=== PATIENT | male | born 1990 | race Caucasian/White ===

== ENCOUNTER 2017-06-10 19:36 | Inpatient (IN) | payer MEDICAID ==
[2017-06-10] MEDS ORDERED: NS 1,000 ML IV ONE (19:40)
[2017-06-10] MEDS ORDERED: ONDANSETRON 4 MG/2 ML VIAL ONE (19:43)
[2017-06-10] MEDS ORDERED: ONDANSETRON 4 MG/2 ML VIAL IVP ONE (19:44)
[2017-06-10 19:47] LABS: % IMMATURE GRANULYOCYTES 0.5 % (0.0-1.1); ABSOLUTE IMMATURE GRANULOCYTES 0.07 10^3/uL (0.00-0.10); ADD DIFF? NO; ADD MORPH? NO; ADD SCAN? NO; ATYPICAL LYMPHOCYTE FLAG 30 (0-99); FRAGMENT RBC FLAG 0 (0-99); HEMATOCRIT 47.9 % (40.0-51.0); HEMOGLOBIN 16.9 g/dL (13.7-17.5); LEFT SHIFT FLG 10 (0-99); LIPEMIA HEMOLYSIS FLAG 90 (0-99); MEAN CELL HEMOGLOBIN 33.3 pg (27.9-34.1); MEAN CELL HEMOGLOBIN CONCENTR. 35.3 g/dL (32.4-36.7); MEAN CELL VOLUME 94.5 fL (81.5-99.8); MEAN PLATELET VOLUME 9.3 fL (8.7-11.7); PLATELET CLUMPS FLAG 0 (0-99); PLATELET COUNT 233 10^3/uL (150-400); RED BLOOD CELL COUNT 5.07 10^6/uL (4.40-6.38); RED CELL DISTRIBUTION WIDTH 12.3 % (11.5-15.2)
--- NOTE | 2017-06-10 19:48 | CPEKG ---
Heart Rate: 85 RR Interval: 706 P-R Interval: 168 QRSD Interval: 98 QT Interval: 396 QTC Interval: 471 P [place]: 61 QRS [place]: -4 T Wave [place]: 70 EKG Severity - BORDERLINE ECG - EKG Impression: SINUS RHYTHM EKG Impression: BORDERLINE PROLONGED QT INTERVAL Electronically Signed By: Nadira Tran 10-Jun-2017 20:58:24
[2017-06-10 19:54] LABS: BASE EXCESS -12.8 mEq/L (-2.5-2.5); BICARBONATE 15 mEq/L (22-26); MEASURED OXYGEN SATURATION 95 % (92-95); PCO2 40 mmHg (34-38); PO2 98 mmHg (65-75); TCO2 16 mEq/L (23-27)
[2017-06-10 19:57] LABS: END TIDAL CO2 12; O2 CONCENTRATIION 15 % (0-100); P/F RATIO 653 RATIO
[2017-06-10 20:02] LABS: ANION GAP 16 mEq/L (8-16); CALCIUM 9.7 mg/dL (8.5-10.4); CARBON DIOXIDE 15 mEq/l (22-31); CHLORIDE 110 mEq/L (97-110); CREATININE 1.1 mg/dL (0.7-1.3); GLOMERULAR FILTRATION RATE > 60; GLUCOSE 157 mg/dL (70-100); POTASSIUM 3.5 mEq/L (3.5-5.2); SODIUM 141 mEq/L (134-144)
--- NOTE | 2017-06-10 20:03 | EDPHY ---
H & P Time Seen by Provider: 06/10/17 19:50 HPI/ROS: Chief Complaint: Syncope, vomiting, shortness of breath HPI: 26-year-old male who is visiting here from [place]. He has a history of congenital hydrocephalus and has a SUBCONTRACT ADMINISTRATOR shunt in place. Patient periodically gets severe headaches from this. He states today he developed a severe headache this morning. Started having some nausea and vomiting. He was in the bathroom vomiting this evening when the host family with whom he is staying heard a crash. They went to the bathroom to find him lying on his left hand side. He was covered in emesis. 911 was called. On arrival he was complaining of difficulty breathing. They noted diffuse rhonchi on exam and some "pink frothy thing at the mouth". He does report that he had been [place]. States his headache now is down to a 3/10. Mild nausea. Continued to have shortness of breath. Patient had oxygen saturations initially in the 70s. Up to the high 80s on non-rebreather for EMS. Patient is otherwise without any other complaint. He is awake and alert. ROS: 10 point Review of Systems is negative except as noted in the HPI. PMH: Chronic headaches, hydrocephalus Social History: No smoking, rare alcohol, no recreational drug use Family History: non-contributory Physical Exam: Gen: Awake, Alert, marked respiratory distress, tachypneic, hypoxemic HEENT: Nose: no rhinorrhea Eyes: PERRLA, EOMI Mouth: Moist mucosa dried blood on his lips and in his soto Neck: Supple, no JVD Chest: nontender, diffuse rhonchi left significantly greater on the left than right, no inspiratory rales Heart: S1, S2 normal, no murmur Abd: Soft, non-tender, no guarding Back: no CVA tenderness, no midline tenderness Ext: no edema, non-tender Skin: no rash Neuro: CN II-XII intact, Sensation grossly intact, Strength 5/5 in bilateral upper and lower extremities Constitutional: Initial Vital Signs Temperature (C) 36.6 C 06/10/17 19:36 Heart Rate 86 06/10/17 19:36 Respiratory Rate 22 H 06/10/17 19:36 Blood Pressure 144/84 H 06/10/17 19:36 O2 Sat (%) 90 L 06/10/17 19:36 O2 Delivery Mode Bi-Pap O2 (L/minute) 15 Allergies/Adverse Reactions: Penicillins Allergy (Verified 06/10/17 20:16) Medical Decision Making - Diagnostics Imaging Results: Imaging Impressions Chest X-Ray 06/10/17 19:39 Impression: Asymmetric pulmonary edema versus atypical pneumonia/viral pneumonitis. Imaging: I viewed and interpreted images myself ED Course/Re-evaluation: 26-year-old arrived with severe respiratory distress, initially presented as a possible headache but the patient has not had significant altitude exposure. His brought him for significantly worse on the left than right. Chest x-ray shows a worsening left-sided infiltrate. Given his history of recent vomiting passing out I suspect he had a syncopal episode from vasovagal vomiting and subsequently aspirated. Patient still having difficulty breathing on a non- rebreather and given his bronchi has been started on BiPAP. ECG noted. No acute findings. The blood gas noted. Consistent with a respiratory acidosis with hypoxemia again consistent with aspiration. Patient is on BiPAP, 15/5 with significant improvement. He is resting comfortably. He is satting 100%. I have discussed with Dr. Durán, hospitalist. Will admit to the ICU. She agrees with the plan to start Invanz as the patient is pen allergic and has had a significant aspiration. - Data Points Laboratory Results: Laboratory Results 06/10/17 19:20 06/10/17 19:20 06/10/17 06/10/17 06/10/17 19:47 19:33 19:20 WBC RBC Hgb POC Hgb 17.0 gm/dL gm/dL (13.7-17.5) Hct POC Hct 50 % % (40-51) MCV MCH MCHC RDW Plt Count MPV Neut % (Auto) Lymph % (Auto) [place] % (Auto) Eos % (Auto) Baso % (Auto) Nucleat RBC Rel Count Absolute Neuts (auto) Absolute Lymphs (auto) Absolute Monos (auto) Absolute Eos (auto) Absolute Basos (auto) Absolute Nucleated RBC Immature Gran % Immature Gran # Puncture Site RIGHT RADIAL Patient Temperature 37.0 DEGREES DEGREES pCO2 40 mmHg H mmHg (34-38) pO2 98 mmHg H mmHg (65-75) Total CO2 16 mEq/L L mEq/L (23-27) ABG pH 7.20 L (7.35-7.45) ABG PO2/FiO2 Ratio 653 RATIO RATIO ABG HCO3 15 mEq/L L mEq/L (22-26) ABG O2 Saturation 95 % % (92-95) ABG Base Excess -12.8 mEq/L L mEq/L (-2.5-2.5) O2 Concentration % 15 % % (0-100) End Tidal CO2 12 POC Sodium 143 mEq/L mEq/L (134-144) Sodium 141 mEq/L mEq/L (134-144) POC Potassium 3.0 mEq/L L mEq/L (3.3-5.0) Potassium 3.5 mEq/L mEq/L (3.5-5.2) POC Chloride 108 mEq/L mEq/L (97-110) Chloride 110 mEq/L mEq/L (97-110) Carbon Dioxide 15 mEq/l L mEq/l (22-31) Anion Gap 16 mEq/L mEq/L (8-16) POC BUN 18 mg/dL mg/dL (7-23) BUN 17 mg/dL mg/dL (7-23) Creatinine 1.1 mg/dL mg/dL (0.7-1.3) POC Creatinine 1.1 mg/dL mg/dL (0.7-1.3) Estimated GFR > 60 Glucose 157 mg/dL H mg/dL (70-100) POC Glucose 163 mg/dL H mg/dL (70-100) Calcium 9.7 mg/dL mg/dL (8.5-10.4) 06/10/17 19:20 WBC 15.49 10^3/uL H 10^3/uL (3.80-9.50) RBC 5.07 10^6/uL 10^6/uL (4.40-6.38) Hgb 16.9 g/dL g/dL (13.7-17.5) POC Hgb Hct 47.9 % % (40.0-51.0) POC Hct MCV 94.5 fL fL (81.5-99.8) MCH 33.3 pg pg (27.9-34.1) MCHC 35.3 g/dL g/dL (32.4-36.7) RDW 12.3 % % (11.5-15.2) Plt Count 233 10^3/uL 10^3/uL (150-400) MPV 9.3 fL fL (8.7-11.7) Neut % (Auto) 51.8 % % (39.3-74.2) Lymph % (Auto) 40.9 % % (15.0-45.0) [place] % (Auto) 5.8 % % (4.5-13.0) Eos % (Auto) 0.6 % % (0.6-7.6) Baso % (Auto) 0.4 % % (0.3-1.7) Nucleat RBC Rel Count 0.0 % % (0.0-0.2) Absolute Neuts (auto) 8.04 10^3/uL H 10^3/uL (1.70-6.50) Absolute Lymphs (auto) 6.33 10^3/uL H 10^3/uL (1.00-3.00) Absolute Monos (auto) 0.90 10^3/uL H 10^3/uL (0.30-0.80) Absolute Eos (auto) 0.09 10^3/uL 10^3/uL (0.03-0.40) Absolute Basos (auto) 0.06 10^3/uL 10^3/uL (0.02-0.10) Absolute Nucleated RBC 0.00 10^3/uL 10^3/uL (0-0.01) Immature Gran % 0.5 % % (0.0-1.1) Immature Gran # 0.07 10^3/uL 10^3/uL (0.00-0.10) Puncture Site Patient Temperature pCO2 pO2 Total CO2 ABG pH ABG PO2/FiO2 Ratio ABG HCO3 ABG O2 Saturation ABG Base Excess O2 Concentration % End Tidal CO2 POC Sodium Sodium POC Potassium Potassium POC Chloride Chloride Carbon Dioxide Anion Gap POC BUN BUN Creatinine POC Creatinine Estimated GFR Glucose POC Glucose Calcium Medications Given: Discontinued Medications Ondansetron HCl (Zofran) 4 mg IVP EDNOW ONE Stop: 06/10/17 19:45 Last Admin: 06/10/17 19:45 Dose: 4 mg Point of Care Test Results: 06/10/17 19:33 POC Sodium 143 POC Potassium 3.0 L POC Chloride 108 POC BUN 18 POC Creatinine 1.1 POC Glucose 163 H Departure - Departure Disposition: [facility] In[facility] Acute Clinical Impression: Aspiration pneumonitis, Vomiting, Headache Condition: Critical Referrals: Patient,NotPresent [Primary Care Provider] - As per Instructions
[2017-06-10] MEDS ORDERED: ERTAPENEM 1 GM in NS 100 ML IV ONE ×2 (20:18→20:30)
[2017-06-10] MEDS ORDERED: PROMETHAZINE HCL 25 MG TAB PO PRN (20:47)
[2017-06-10] MEDS ORDERED: IPRATROPIUM/ALBUTEROL 3 ML DEYVIAL IH PRN (20:51)
[2017-06-10] MEDS ORDERED: NS 1,000 ML IV SCH (21:00)
[2017-06-10] MEDS ORDERED: IBUPROFEN 800 MG TAB PO PRN (21:15)
[2017-06-10] MEDS ORDERED: SUMAtriptan 50 MG TAB PO PRN (21:15)
[2017-06-10] MEDS: NS W/ 20 KCl/L 1,000 ML IV SCH (22:15)
[2017-06-10] MEDS: GABAPENTIN 300 MG CAP PO SCH (22:29)
[2017-06-10] MEDS: TOPIRAMATE 100 MG TAB PO SCH (22:29)
[2017-06-10] MEDS: VENLAFAXINE XR 75 MG CAP PO SCH (22:30)
[2017-06-10] MEDS: ACETAMINOPHEN 325 MG TAB PO PRN (22:41)
[2017-06-11] MEDS: guaiFENesin/CODEINE PHOS 10 ML UDCUP PO PRN ×2 (01:15→12:19)
[2017-06-11] MEDS: oxyCODONE IR 5 MG TAB PO PRN ×3 (02:02→20:57)
[2017-06-11] MEDS: NS W/ 20 KCl/L 1,000 ML IV SCH ×3 (04:27→18:31)
[2017-06-11] MEDS: HYDROmorphONE/DILAUDID 1 MG/ML SYR IVP PRN ×6 (05:16→23:58)
[2017-06-11] MEDS: PROMETHAZINE HCL 25 MG/ML INJ IVP PRN ×3 (05:23→19:44)
[2017-06-11 05:25] LABS: % IMMATURE GRANULYOCYTES 0.5 % (0.0-1.1); ABSOLUTE IMMATURE GRANULOCYTES 0.11 10^3/uL (0.00-0.10); ADD DIFF? NO; ADD MORPH? NO; ADD SCAN? NO; ATYPICAL LYMPHOCYTE FLAG 0 (0-99); FRAGMENT RBC FLAG 0 (0-99); HEMATOCRIT 37.9 % (40.0-51.0); HEMOGLOBIN 13.7 g/dL (13.7-17.5); LEFT SHIFT FLG 20 (0-99); LIPEMIA HEMOLYSIS FLAG 90 (0-99); MEAN CELL HEMOGLOBIN 33.9 pg (27.9-34.1); MEAN CELL HEMOGLOBIN CONCENTR. 36.1 g/dL (32.4-36.7); MEAN CELL VOLUME 93.8 fL (81.5-99.8); MEAN PLATELET VOLUME 9.1 fL (8.7-11.7); PLATELET CLUMPS FLAG 0 (0-99); PLATELET COUNT 160 10^3/uL (150-400); RED BLOOD CELL COUNT 4.04 10^6/uL (4.40-6.38); RED CELL DISTRIBUTION WIDTH 12.3 % (11.5-15.2)
[2017-06-11] MEDS: CYCLOBENZAPRINE 10 MG TAB PO PRN ×2 (05:36→20:58)
[2017-06-11 06:03] LABS: ANION GAP 11 mEq/L (8-16); CALCIUM 8.6 mg/dL (8.5-10.4); CARBON DIOXIDE 14 mEq/l (22-31); CHLORIDE 118 mEq/L (97-110); CREATININE 0.8 mg/dL (0.7-1.3); GLOMERULAR FILTRATION RATE > 60; GLUCOSE 109 mg/dL (70-100); POTASSIUM 4.1 mEq/L (3.5-5.2); SODIUM 143 mEq/L (134-144)
--- NOTE | 2017-06-11 07:21 | GHP ---
[f rep st] HISTORY AND PHYSICAL DATE OF ADMISSION: 06/10/2017 CHIEF COMPLAINT: Respiratory failure. HISTORY: The patient is a 26-year-old male visiting from [facility]. 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 He developed a severe headache this morning consistent with his usual migraines. He has had headaches similar to this in the past. This caused some nausea and vomiting. He is staying with a host family while he undergoes a training program. The host family heard a loud crash and found him lying on his left si de covered in emesis. The patient has no memory and had a full syncopal event suspected, just woke up on the floor. At that point he had new onset shortness of breath. 911 was called. Upon arrival , EMS found him to be only 70% on room air. He was brought to the emergency room and was 80% on a n onrebreather. He was subsequently stepped up to a BiPAP machine and is now saturating 100% and more comfortable. PAST MEDICAL HISTORY: 1. 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 2. Migraine and tension headaches. MEDICATIONS: Please see computer record for full detailed list. ALLERGIES: Penicillin. SOCIAL HISTORY: No smoking. No drug use. Occasional alcohol. Staying in [place] with a host neda sousa. He normally lives in [place] with his parents. REVIEW OF SYSTEMS: Complete review of systems obtained. Review of systems negative for any constit utional, HEENT, GI, pulmonary, cardiovascular, , hematology, skin, muscular, endocrine, psychiatri c, except for positives and negatives as in the HPI. FAMILY HISTORY: Reviewed and noncontributory, without any complaint. PHYSICAL EXAMINATION: GENERAL: Well-developed, well-nourished male in no distress. VITAL SIGNS: Temperature is 36.6, pulse of 90, blood pressure 130/90, saturating 100% on BiPAP. HEENT: Eye exam ination normal conjunctivae, pupils react to light. ENT normal ears and nose. Hearing intact. Nor mal teeth. Oropharynx moist. NECK: Trachea midline. No thyromegaly. CHEST: Normal respiratory effort. LUNGS: Rales on the left. Minimal wheeze or rhonchi at this point. CARDIOVASCULAR: Regu lar rhythm. No murmur. No extremity edema. ABDOMEN: Soft, nontender. No hepatosplenomegaly. SK IN: Warm, dry, intact. No rash. MUSCULOSKELETAL: No cyanosis or clubbing. Strength 5/5 upper an d lower extremities. NEUROLOGIC: Cranial nerves intact. Normal sensation to light touch. PSYCHIA TRIC: Alert and oriented x3. Normal mood and affect. Normal judgment and insight. Normal memory. Difficult to take history through the BiPAP mask, but his answers are all appropriate. DIAGNOSTICS: Labs: White count 15.49, hematocrit 47.9, platelets 233. Sodium 141, potassium 3.5, chloride 110, bicarb 15, anion gap 16, BUN 17, creatinine 1.11, glucose 157. ABG shows a pH of 7.2, pCO2 of 40, PO2 of 98, bicarb of 16. EKG reviewed by me and my personal interpretation is normal sinus rhythm. No ST-T wave changes. Chest x-ray shows extensive left-sided infiltrate throughout the entire lung. ASSESSMENT/PLAN: 1. Acute respiratory failure, secondary to aspiration pneumonia. He is now stabilized nicely on Bi PAP. He will go to the ICU. Will continue IV Invanz. 2. Headache. He states this is consistent with previous migraines. This will be treated supportiv araceli. 3. Nausea, vomiting, and syncope. I suspect this is related to acute hypoxemia versus a vasovagal event. 4. Ventriculoperitoneal shunt, due to congenital hydrocephalus. He did not get a head CT in the ER , which probably should get done, so will order it now. CODE STATUS: Full. ADMISSION STATUS: Will admit to inpatient, as he is critically ill. Anticipate greater than 2 midn ights for stabilization. DEEP VEIN THROMBOSIS PROPHYLAXIS: He is moderate risk. Will place him on subcu Lovenox. /[id number]/MODL
[2017-06-11] MEDS: GABAPENTIN 300 MG CAP PO SCH ×2 (08:58→21:44)
[2017-06-11] MEDS: TOPIRAMATE 100 MG TAB PO SCH ×2 (08:58→21:44)
[2017-06-11] MEDS: ACETAMINOPHEN 325 MG TAB PO PRN ×2 (08:59→16:46)
[2017-06-11] MEDS: ENOXAPARIN 40 MG/0.4 ML SYR SC SCH (08:59)
[2017-06-11] MEDS: ERTAPENEM 1 GM in NS 100 ML IV SCH (08:59)
[2017-06-11] MEDS ORDERED: CETIRIZINE 10 MG TAB PO PRN (09:00)
[2017-06-11] MEDS: KETOROLAC 30 MG/1 ML SDV IVP PRN ×2 (11:25→19:43)
--- NOTE | 2017-06-11 11:46 | CPEKG ---
Heart Rate: 59 RR Interval: 1017 P-R Interval: 188 QRSD Interval: 94 QT Interval: 528 QTC Interval: 524 P [place]: -1 QRS [place]: 31 T Wave [place]: 134 EKG Severity - ABNORMAL ECG - EKG Impression: SINUS ARRHYTHMIA, RATE 46-66 EKG Impression: NONSPECIFIC T ABNORMALITIES, ANT-LAT LEADS CONSIDER ISCHEMIA EKG Impression: PROLONGED QT INTERVAL EKG Impression: EARLY TRANSITION Electronically Signed By: Deng Henriquez 13-Jun-2017 17:25:06
--- NOTE | 2017-06-11 15:13 | HOSPPROG ---
Hospitalist Progress Note Assessment/Plan: #Syncope: suspect vasovagal with emesis. Sinus pauses on telemetry. Repeat EKG, TTE, trop #Sinus pause: suspect vasovagal with emesis. Shunt stable on CT. Hard to correlate if symptomatic with persistent migraine. Discussed with Dr. Sanders and will start with TTE #Aspiration PNA vs pneumonitis: acute emesis. Less likely infection, afebrile. IV Ertapenem #Leukocytosis: stress-reaction with aspiration #Acute hypoxic resp failure: due to above. IV abx #Acute on chronic migraines: TROLLEY CLEANER shunt stable on CT, no mass/bleed. Trialing Benadryl, steroids. Imitrex not helpful. Appreciate Neuro consult #Congenital hydrocephalus: TROLLEY CLEANER well-positioned #Diet: regular #DVT ppx: Lovenox #Disp: warrant ICU admission with acute sepsis Subjective: migraine persistent this morning Objective: Vital Signs Temp Pulse Resp BP Pulse Ox 36.1 C 75 16 145/71 H 100 06/11/17 05:44 06/11/17 13:39 06/11/17 13:39 06/11/17 13:39 06/11/17 13:39 Laboratory Results 06/11/17 05:05 06/11/17 05:05 06/10/17 06/11/17 06/12/17 05:59 05:59 05:59 Intake Total 2520 Balance 2520 - Physical Exam Constitutional: uncomfortable (sitting in bed with head in hands, eyes shut) Ears, Nose, Mouth, Throat: moist mucous membranes Cardiovascular: bradycardia Respiratory: no respiratory distress, no rales or rhonchi Gastrointestinal: normoactive bowel sounds, soft, non-tender abdomen Genitourinary: no bladder fullness Skin: warm Musculoskeletal: full muscle strength Neurologic: AAOx3, CN II-XII Intact Psychiatric: interacting appropriately ICD10 Worksheet Patient Problems: Problems Problem Status Onset Aspiration pneumonitis Acute Headache Acute Vomiting Acute
[2017-06-11] MEDS: DEXAMETHASONE 4 MG/ML VIAL IVP SCH ×2 (17:28→23:30)
--- NOTE | 2017-06-11 18:03 | GCON ---
[f rep st] CONSULTATION TEST ENGINEERING MANAGER CONSULTATION REASON FOR ADMISSION: Aspiration pneumonia. HISTORY OF PRESENT ILLNESS: This patient is a pleasant 26-year-old white male with a past medical h istory of congenital hydrocephalus requiring a ENTERPRISE MANAGER sent shunt as a child. He has had constant recurr ent migraines and tension headaches. He is followed by a neurologist in [place]. Apparently he was found down in his home after vomiting. He was lying on his left side at that time. He is visiting the area from [place]. The patient is currently somewhat somnolent, but arousable. He complain s of a headache. He was quite hypoxic in the emergency room. This is improved and he is currently on room air. Apparently, his migraines have increased over the last several months. He last saw [facility] neurologist 3 weeks ago. PAST MEDICAL HISTORY: Significant for congenital hydrocephalus, migraine tension headaches. PAST SURGERIES: ENTERPRISE MANAGER shunt. ALLERGIES: Penicillin. SOCIAL HISTORY: No history of tobacco use. No history of drug use. Infrequent alcohol use. He re sides in [place] with his parents. He has excellent family support. PHYSICAL EXAM: VITAL SIGNS: Blood pressure is 124/86, pulse 67, respirations 19, temperature is 36 .1, oxygen saturation 99% on 2 L. GENERAL: He is a well-developed, well-nourished, 26-year-old whi te male who is in mild distress. HEENT: Eyes are RADHA, EOMI. Throat shows no erythema or tonsilla r hypertrophy. NECK: Supple. No cervical adenopathy. HEART: Regular rate and rhythm, without mu rmurs, rubs, or gallops. LUNGS: Diminished breath sounds. Increased crackles in the left base pos teriorly. There are no E to A changes. ABDOMEN: Soft, nontender. Bowel sounds are present in all 4 quadrants. EXTREMITIES: No clubbing, cyanosis or edema. LABORATORIES: White count 21,000, hemoglobin 13, hematocrit 37, platelet count is 160. Sodium 143, potassium 4.1, chloride 118, CO2 is 14, BUN 15, creatinine 0.8, glucose is 109. Arterial blood gas showed a pH of 7.20, pCO2 of 40, PO2 of 98, bicarb 16, oxygen saturation is 95%. IMAGING: CT scan of the head shows well-positioned left frontal ventriculostomy with a decompressed ventricular system, otherwise normal. Chest x-ray shows left sided infiltrate. IMPRESSION: 1. Aspiration pneumonia. 2. Migraines. These are worsening in nature and severity. 3. History of congenital hydrocephalus with a ENTERPRISE MANAGER shunt. RECOMMENDATIONS: 1. Agree with current IV antibiotics consisting of ertapenem. 2. Imitrex for his migraines. 3. Family requests Neurology consult for worsening migraines. 4. DVT and PE prophylaxis. 5. Stress ulcer prophylaxis. Thank you very much. /[id number]/MODL
--- NOTE | 2017-06-11 18:03 | ECHO ---
[id number] + + [address] : : [place] [address] : : [phone] + Adult Echocardiographic Report + ----+ :Name: JOSE FRANCISCO LAWLER Date: 06/11/2017 12:05 PM : : Hospital Admission Number: [id number] Location: 254: :: 1990 Gender: Male Height: 70 in : :Age: 26 yrs Race: WH Weight: 165 lb : :Reason For Study: Eval LV Fx : : BSA: 1.9 meters2 : :History: Syncope, Bradycardia, Pneumonia, Migraine : + ----+ MMode/2D Measurements \T\ Calculations IVSd: 1.0 cm LVIDd: 5.1 cm FS: 34.4 % Ao root diam: 3.5 cm LVPWd: 1.1 cm LVIDs: 3.3 cm EDV(Teich): 122.0 ml ACS: 2.5 cm ESV(Teich): 45.0 ml EF(Teich): 63.1 % Normal Measurement Values: + + :LVIDd (3.5-5.7cm) IVSd (0.6-1.1cm) LVPWd (0.6-1.1cm) Aortic Root (2.0-3.7cm)Left Atrium (1.5-4.0cm): :LV Vol(d) (76-115ml) LV Vol(s) (29-48ml) Ejec Fraction (50-65%)PV Enrike (0.6- 1.2m/s) TV Enrike (0.4-1.0m/s) : :MV E Enrike (0.8-1.0m/s)MV A Enrike (0.3-1.0m/s)LVOT Enrike (0.7-1.2m/s) Asc Ao Enrike ( 0.9-1.8m/s) : + + Doppler Measurements \T\ Calculations MV E max enrike: Ao V2 max: LV V1 max: PA V2 max: 70.6 cm/sec 86.9 cm/sec 52.8 cm/sec 108.6 cm/sec MV A max enrike: Ao max PG: LV V1 max PG: PA max P.7 mmHg 37.5 cm/sec 3.0 mmHg 1.1 mmHg MV E/A: 1.9 Left Ventricle The left ventricle is normal in size. There is normal left ventricular wall thickness. The left ventricular ejection fraction is normal. Ejection Fraction = 65%. Right Ventricle The right ventricle is normal in size and function. Atria The left atrial size is normal. Right atrial size is normal. Mitral Valve The mitral valve is normal. There is no mitral valve stenosis. There is no mitral regurgitation noted. Tricuspid Valve Normal tricuspid valve. No tricuspid regurgitation. Aortic Valve The aortic valve is bicuspid. There is no aortic stenosis. There is a mild, eccentric aortic insufficiency. Pulmonic Valve The pulmonic valve is normal in structure and function. Great Vessels The aortic root is normal size. No Doppler or imaging evidence of an aortic coarctation. Pericardium/Pleural There is no pericardial effusion. Conclusion A complete two-dimensional transthoracic echocardiogram was performed (2D, M-mode, Doppler and color flow Doppler). 1. The left ventricle is normal in size and function. The Ejection Fraction = 65%. 2. The mitral valve is normal in structure and function. 3. The aortic valve is bicuspid. There is a mild, eccentric aortic insufficiency. There is no aortic stenosis. 4. The aortic root is normal size. 5. The pulmonary artery pressure could not be adequately estimated. 6. No old studies for comparison. Final Reading Physician: Deng Henriquez MD electronically signed on 06/11/2017 06:01 PM Ordering Physician: Devora Cotto Performed By: Bipin Hoffmann, LINUSCS
[2017-06-11 18:30] LABS: TROPONIN I 0.085 ng/mL (0-0.034)
[2017-06-11] MEDS: VANCOMYCIN 1.25 GM in D5W 250 ML IV SCH (18:30)
--- NOTE | 2017-06-11 20:03 | GCON ---
[f rep st] CONSULTATION NEUROLOGIC CONSULTATION REFERRING PHYSICIAN: Toney Pendleton, DO HISTORY: The patient is a 26-year-old gentleman whom I am asked to see in neurologic consultation r egarding migraine headaches. He has a history of congenital hydrocephalus and a shunt at age 5, and has not had a shunt revision for many years. He has a long history of migraine as well, greater th an 10 years, and typically they would occur once or twice a week. Sometimes less and sometimes more . But over the last several months, the frequency has been increasing to as many as 4 full-blown mi graine headaches per week. He is working with his neurologist and they have him on Topamax and cesar pentin, but he is still having a hard time preventing the migraines. They are disabling when they o ccur and can keep him out of commission for hours. They can be associated with trouble with verbal expression and confusion as well. He is currently in the midst of a migraine and unable to provide much history directly and is lying in a dark room, but I can get information from his mother who is a very reliable historian and knows his case fairly well. In any case, she said they are in the pro cess of trying to get him Botox, but they have not been able to connect with the provider who does t hat and are working to arrange that as soon as possible. They wanted to see someone today to discus s other options or help facilitate the process of getting him on Botox. He came to the hospital on this occasion because of severe headache with vomiting, and then samanta d suspected aspiration pneumonia. He has had imaging of the brain showing no evidence of hydrocepha gretel. The ventricles are decompressed. He is receiving treatment for the pneumonia and that is stab ilizing, but he is very uncomfortable with headache today. PAST MEDICAL HISTORY: As outlined above with the migraine and the hydrocephalus, but otherwise unre markable. ALLERGIES: Penicillin. SOCIAL HISTORY: He is staying with a host family currently in the area associated with some of his work. No smoking or drug use. Occasional alcohol. His home is in [facility] normally living with his parents, but he is going to be traveling out of the [place] soon. FAMILY HISTORY: Noncontributory. REVIEW OF SYSTEMS: Notable for light sensitivity, sound sensitivity, nausea and intense headache, a nd some trouble with his expression when he is in the middle of a migraine, like today. PHYSICAL EXAMINATION: CURRENT VITAL SIGNS: Blood pressure is 97/57, pulse of 60, respirations 14, temperature is 36.1. He has not had any elevated temperatures into the febrile range. GENERAL: I did not try to examine him because he is uncomfortable and very light sensitive, and did not think it was very likely to show any acute physical findings. IMAGING: As noted, he did have a head CT, which did not show any evidence of hydrocephalus. IMPRESSION: The patient has a long-standing history of congenital hydrocephalus, with good decompre ssion with shunt in place. It is not likely that shunt malfunction is the issue here. There is no way to know definitively, but I think that should be low on the list of the differential considerati ons. More likely is he is simply having a flare-up of migraine headaches and the true root cause of migraine really isn't known in this patient or anybody else. He certainly does not have a clear-cu t explanation. It is logical that, in the setting of pneumonia, he might have worsening of headache and the cough could have exacerbated it as well, but none of this is a new phenomenon to him. Clas sically he treats with Imitrex, but cannot abort the headaches but rather simply decrease their inte nsity when they do occur. The frequency has reached the point of justifying more intervention, such as Botox, and they are in the process of doing that now. It has simply been hard for them to facil itate this quickly in the outpatient setting. PLAN: I told his mother to contact the physician's office who is working with them and find out for sure where they stand on getting the Botox approved, because this needs to be done before he can ev en receive the treatment. I also offered to help through our office if they wanted to have the [facility] records transferred to us and we can see about having this information submitted to Medicaid so we can get approval as soon as possible for Botox treatments, which I am happy to do if he is in the [place] area. In any case, she will be in touch and let me know how that they would like to procee d. In the meantime, I am interested in helping alleviate this current headache and agree that ankita ng off in the short-term with Imitrex because of some of the heart issues of unknown cause showing u p is reasonable. However, he can still receive treatment with IV Benadryl, ketorolac, Phenergan and a dose of steroid may be helpful as well. I will continue to be available for any questions as the y come up and check on his progress. /[id number]/MODL
[2017-06-11] MEDS: VENLAFAXINE XR 75 MG CAP PO SCH (21:44)
[2017-06-11] MEDS: ONDANSETRON 4 MG/2 ML VIAL IVP PRN (23:48)
[2017-06-12] MEDS: KETOROLAC 30 MG/1 ML SDV IVP PRN ×4 (01:46→19:26)
[2017-06-12] MEDS: NS W/ 20 KCl/L 1,000 ML IV SCH ×2 (01:47→10:40)
[2017-06-12] MEDS: HYDROmorphONE/DILAUDID 1 MG/ML SYR IVP PRN ×4 (04:18→14:01)
[2017-06-12 04:36] LABS: HEMATOCRIT 38.1 % (40.0-51.0); HEMOGLOBIN 13.3 g/dL (13.7-17.5); MEAN CELL HEMOGLOBIN 33.6 pg (27.9-34.1); MEAN CELL HEMOGLOBIN CONCENTR. 34.9 g/dL (32.4-36.7); MEAN CELL VOLUME 96.2 fL (81.5-99.8); RED BLOOD CELL COUNT 3.96 10^6/uL (4.40-6.38); RED CELL DISTRIBUTION WIDTH 12.3 % (11.5-15.2)
[2017-06-12 04:51] LABS: ANION GAP 17 mEq/L (8-16); CALCIUM 8.5 mg/dL (8.5-10.4); CARBON DIOXIDE 13 mEq/l (22-31); CHLORIDE 113 mEq/L (97-110); CREATININE 0.7 mg/dL (0.7-1.3); GLOMERULAR FILTRATION RATE > 60; GLUCOSE 118 mg/dL (70-100); POTASSIUM 4.7 mEq/L (3.5-5.2); SODIUM 143 mEq/L (134-144)
[2017-06-12] MEDS: DEXAMETHASONE 4 MG/ML VIAL IVP SCH ×3 (05:24→17:30)
[2017-06-12] MEDS: VANCOMYCIN 1.25 GM in D5W 250 ML IV SCH ×2 (05:24→17:30)
[2017-06-12] MEDS: CYCLOBENZAPRINE 10 MG TAB PO PRN ×2 (07:50→13:13)
[2017-06-12] MEDS: ONDANSETRON 4 MG/2 ML VIAL IVP PRN (07:53)
[2017-06-12] MEDS: TOPIRAMATE 100 MG TAB PO SCH ×2 (08:04→21:41)
[2017-06-12] MEDS: ERTAPENEM 1 GM in NS 100 ML IV SCH (08:04)
[2017-06-12] MEDS: ENOXAPARIN 40 MG/0.4 ML SYR SC SCH (08:04)
[2017-06-12] MEDS: GABAPENTIN 300 MG CAP PO SCH ×2 (08:04→21:42)
--- NOTE | 2017-06-12 09:48 | PDINTPN ---
Vice President Digital Strategist Progress Note Assessment/Plan: Assessment/plan: * Aspiration pneumonia-clinically improved -continue Invanz * Congenital hydrocephalus-status post JUNIOR HIGH SCHOOL TEACHER shunt * Migraines-no improvement so far. -per Neurology * Mqsubdclvk-kkqo-ghpjwiko staph. Likely contaminant. * Bradycardia-significant pauses. -with the exception of bicuspid aortic valve, echocardiogram was normal -will consult Cardiology Subjective: Still having significant headaches. Breathing easily. Minimal cough Objective: Vital Signs Temp Pulse Resp BP Pulse Ox 36.4 C 77 20 118/79 95 06/12/17 04:00 06/12/17 07:54 06/12/17 07:54 06/12/17 07:54 06/12/17 07:54 Microbiology 06/10/17 20:22 Blood Panel (PCR) - Final Blood Staph Coagulase Negative Laboratory Results 06/12/17 04:30 06/12/17 04:30 06/11/17 06/12/17 06/13/17 05:59 05:59 05:59 Intake Total 2520 3791 Output Total 3600 350 Balance 2520 191 -350 Laboratory Results 06/12/17 04:30 06/12/17 04:30 06/10/17 20:22 Blood Culture - Preliminary Blood Blood Panel (PCR) - Final Gram Positive Cocci Staph Coagulase Negative Physical Exam - Physical Exam General Appearance: alert, mild distress EENT: PERRL/EOMI, normal ENT inspection, pharynx normal, TMs normal Neck: non-tender, full range of motion, supple, normal inspection Respiratory: crackles (Few left), No respiratory distress, No wheezing Cardiac/Chest: normal peripheral pulses, regular rate, rhythm Abdomen: normal bowel sounds, non-tender, soft Male Genitalia: deferred Rectal: deferred Skin: normal color, warm/dry Extremities: normal range of motion, non-tender, normal inspection, normal capillary refill ICD10 Worksheet Patient Problems: Problems Problem Status Onset Aspiration pneumonitis Acute Headache Acute Migraine Acute Vomiting Acute
[2017-06-12] MEDS: oxyCODONE IR 5 MG TAB PO PRN ×2 (11:00→17:30)
[2017-06-12] MEDS ORDERED: ATROPINE SULFATE 1 MG/10 ML SYR ONE (11:01)
--- NOTE | 2017-06-12 11:23 | HOSPPROG ---
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 Shunt stable on CT. Hard to correlate if symptomatic with persistent migraine. as above echo pretty normal I do have concern that he had bradycardic syncope and that bradycardia is mediated by elevated ICP CT w decompressed ventricles neurosurgery Aspiration PNA vs pneumonitis: acute emesis. Less likely infection, afebrile. IV Ertapenem Leukocytosis: stress-reaction with aspiration Acute hypoxic resp failure: due to above. IV abx Acute on chronic migraines: SKILLED TRADES TEACHER shunt stable on CT, no mass/bleed. Trialing Benadryl, steroids. Imitrex not helpful. Appreciate Neuro consult Congenital hydrocephalus: SKILLED TRADES TEACHER well-positioned Diet: regular DVT ppx: Lovenox Disp: warrant ICU admission with acute sepsis Subjective: tele: bradycardic w pauses (interp by me). case d/w dr anderson Objective: Vital Signs Temp Pulse Resp BP Pulse Ox 36.4 C 43 L 20 133/87 H 91 L 06/12/17 04:00 06/12/17 10:00 06/12/17 10:00 06/12/17 10:00 06/12/17 10:00 Microbiology 06/10/17 20:22 Blood Panel (PCR) - Final Blood Staph Coagulase Negative Laboratory Results 06/12/17 04:30 06/12/17 04:30 06/11/17 06/12/17 06/13/17 05:59 05:59 05:59 Intake Total 2520 3791 Output Total 3600 350 Balance 2520 191 -350 - Physical Exam Constitutional: no apparent distress, appears nourished Eyes: PERRL, anicteric sclera Ears, Nose, Mouth, Throat: moist mucous membranes, hearing normal Cardiovascular: bradycardia, No regular rate and rhythym, No systolic murmur Respiratory: no respiratory distress, no rales or rhonchi Gastrointestinal: normoactive bowel sounds, soft, non-tender abdomen Genitourinary: No brown in urethra Skin: warm, normal color Musculoskeletal: full muscle strength, no muscle tenderness Neurologic: AAOx3 ICD10 Worksheet Patient Problems: Problems Problem Status Onset Aspiration pneumonitis Acute Headache Acute Migraine Acute Vomiting Acute
[2017-06-12] MEDS: ACETAMINOPHEN 325 MG TAB PO PRN (13:12)
--- NOTE | 2017-06-12 14:31 | GCON ---
[f rep st] CONSULTATION NEUROSURGICAL CONSULTATION DATE OF CONSULTATION: 06/12/2017 CHIEF COMPLAINT: Headache. HISTORY OF PRESENT ILLNESS: The patient is a 26-year-old male who has a history of congenital shunt dependent hydrocephalus. His last shunt was revised around 1999 and was converted from a ventriculoatrial shunt to a ventriculoperitoneal shunt. Over the last several months, he has had persistent headaches. He has a longstanding history of migraines, for which he has seen a neurologist and he has been treated with Imitrex and other headache medications. He was visiting his family and had a syncopal episode with emesis and possible aspiration. He was admitted to [facility] for further evaluation. He currently complains of ongoing frontal and bitemporal headache. This is associated with photophobia and neck stiffness. He has had some nausea and vomiting as well. While in the hospital, he has had episodes of bradycardia. He is not having any new visual deficits. PAST MEDICAL HISTORY: 1. Shunt dependent hydrocephalus. 2. Migraine headaches. 3. Tension headaches. MEDICATIONS PRIOR TO ADMISSION: Flexeril, Neurontin, Motrin, Claritin, Phenergan, Imitrex, Topamax, and venlafaxine. ALLERGIES: Are penicillin and sulfa. FAMILY HISTORY: The patient has no family history of hydrocephalus or headaches. SOCIAL HISTORY: The patient is single and does not have any children. He does drink alcohol socially. He denies smoking or drug use. REVIEW OF SYSTEMS: The patient has had recent fevers, photophobia and neck stiffness. PHYSICAL EXAMINATION: GENERAL: The patient is awake, alert, and oriented x4. EYES: Pupils equal, round, reactive to light. Extraocular motions are intact. NEUROLOGIC: There is no evidence of facial droop. Tongue and uvula are midline. Spinal accessory muscles are intact. His motor strength is 5/5 in his arms and legs. Sensation is grossly intact to light touch in his arms and legs. Deep tendon reflexes are 1+/4 in the bilateral biceps, triceps, brachioradialis, patellar, and Achilles. He has a negative Lauren's with no clonus. IMAGING: A head CT without contrast from [facility] on 2016 shows a left-sided ventricular catheter in the left lateral ventricle. The left lateral ventricle is collapsed. The right lateral ventricle is slightly enlarged. There is no enlargement of the third or fourth ventricle. There is a small cerebellar arachnoid cyst. There is no evidence of an acute hemorrhage. LABORATORY DATA: Recent white blood cell count is 13.78 on 06/12/2017. This is down from 21,000 on 06/11/2017. It was 15.4 on 06/10/2017. The patient does have coagulase-negative Staph bacteremia in 1/2 blood cultures from 2016. IMPRESSION: This is a 26-year-old male with shunt dependent hydrocephalus, who has a long-standing history of headaches. He was recently admitted with a syncopal episode, bradycardia, fevers and chills. He is currently neurologically stable. PLAN: The above discussed in detail with the patient and his mother and father who are present. This patient was also seen and examined Dr. Ace Ennis. This case was also discussed with Dr. Pendleton and Dr. Howe. At this point in time, we would suggest that the patient have a lumbar puncture performed. We would like to evaluate his opening pressure and also send his cerebral spinal fluid for Gram stain, culture, protein, cell count, and glucose. The left-sided ventricular valve does depress, but does not refill quickly. At this point in time, we would recommend that he continue to stay on antibiotics for his aspiration pneumonia, even though this may skew the CSF culture. We can make further treatment recommendations after the lumbar puncture and evaluation of the cerebral spinal fluid. Dr Zhang discussed this case with Dr Alas and they would like Opthalmology to determine if he has evidence of papilledema. If he has papilledema or an elevated opening pressure then we can consider revision of his ADVERTISING PROJECT MANAGER shunt. Please call with any neurological changes. /[id number]/MODL MTDD
--- NOTE | 2017-06-12 14:41 | GCON ---
[f rep st] CONSULTATION CARDIOLOGY CONSULTATION DATE OF CONSULTATION: 06/12/2017 REASON FOR CONSULTATION: Sinus bradycardia and pauses up to approximately 3 seconds. HISTORY OF PRESENT ILLNESS: The patient is a pleasant 26-year-old gentleman with a known history of congenital hydrocephalus as a child, with a ENVIRONMENTAL COMPLIANCE OFFICER shunt placed initially at 6 months old, and has undergone multiple revisions, who also has a history of migraine headaches. He typically lives in [place] with his family and he was working down in [place] when he developed increasing severe intense headaches that felt more consistent than his typical migraine headaches. They are not responding to topical therapy. He was staying with friends when he became nauseated and vomited and loss consciousness. The family he was staying with found him unconscious on the floor and covered in vomit. He was complaining of being short of breath. He was found to be hypoxic with a room air saturation of 70% and was found to have aspiration pneumonia. He was admitted to the [facility] Intensive Care Unit for aspiration pneumonia and acute respiratory distress. Throughout the course of his hospitalization, he has had hniis-gq-telhdry headaches. CT scan of the head demonstrated no evidence of hydrocephalus. There was no evidence of subdural hematoma or trauma. Telemetry has demonstrated sinus bradycardia with rates dropping into the 30s and pauses of up to 3 seconds. He denies any complaints of dizziness, lightheadedness. He is on no A-V jose carlos blocking medications. He does not use marijuana. MEDICATIONS: Outpatient medications include venlafaxine, Topamax, and Neurontin. He uses p.r.n. Imitrex, Claritin, Motrin, Flexeril. ALLERGIES: He is allergic to penicillin and sulfa. PAST MEDICAL HISTORY: Notable for chronic headaches, congenital hydrocephalus status post ENVIRONMENTAL COMPLIANCE OFFICER shunt with multiple revisions, and migraine headaches. The patient denies any known history of bradycardia. PHYSICAL EXAMINATION: VITAL SIGNS: Blood pressure is 113/63, heart rate 47 in sinus bradycardia, respiratory rate of 23, oxygen saturation 95% on room air, temperature of 36.8. GENERAL: He is awake, alert, appropriate. He is in significant distress with chronic intense headache. His is eyes are closed and his hands are over his head secondary to pain. DATA: Most recent lab work demonstrates white blood cell count of 13.78, hemoglobin of 13.3, platelet count of 148. Sodium 143, potassium 4.7, chloride 113, bicarb 13, BUN 7, creatinine 0.7, glucose 118. Calcium 8.5, magnesium 1.8. TSH 0.643. Troponin 0.085, trending down to 0.066. A complete 2D echocardiogram demonstrates normal left ventricular systolic function with LVEF of 60-65%. He has evidence of a bicuspid aortic valve with mild aortic insufficiency. The remainder of his echocardiogram is essentially unremarkable. Most recent ECG demonstrates sinus arrhythmia with biphasic T-waves in leads V2 through V6 with a prolonged Q-T interval corrected via Bazett formula at 524 milliseconds. His initial ECG on presentation demonstrated sinus rhythm with borderline prolonged Q-T interval and no evidence of biphasic T-waves. IMPRESSION: 1. Sinus arrhythmia. 2. Sinus bradycardia. 3. Intermittent pauses up to 3 seconds. 4. Intractable headache. 5. History of congenital hydrocephalus with ventriculoperitoneal shunt. PLAN: 1. Agree with plan for LP and assessment of intracranial pressure. 2. Continue telemetry. 3. Recommend recheck serum magnesium today. 4. Continue on telemetry. 5. Daily ECGs. 6. No indication for pacemaker at this time. We will continue to follow along with his care. 45 min spent coordinating patient care /[id number]/MODL MTDChepe
[2017-06-12] MEDS ORDERED: TROPICAMIDE 1% 15 ML OPHT.BTL EACHEYE ONE (15:30)
--- NOTE | 2017-06-12 16:18 | NEUROPROG ---
Assessment: I had a conversation with the patient's mother and father who are in the room as well and also talked to Dr. Valles on the phone about the case and agree that pursuing evaluation with funduscopic exam and perhaps lumbar puncture is reasonable since we are not really making any progress on his case and increased intracranial pressure should be ruled out. The extremely refractory nature of his headaches is certainly not the typical story for migraine. Total unit time of 25 minutes. Subjective: The patient is continuing to have significant headache. There are times when it is less severe, but he still has moderate headache continuously and variable degrees of nausea and light and sound sensitivity and then periods of severe headache without major relief from the treatment. He feels that the addition of steroid and Benadryl may have made some difference, particularly with better rest using Benadryl but nothing has really broken the cycle of pain. Objective: Vital Signs Temp Pulse Resp BP Pulse Ox 36.8 C 49 L 17 130/93 H 96 06/12/17 12:00 06/12/17 14:00 06/12/17 14:00 06/12/17 14:00 06/12/17 14:00 Microbiology 06/10/17 20:22 Blood Panel (PCR) - Final Blood Staph Coagulase Negative Laboratory Results 06/12/17 04:30 06/12/17 04:30 06/11/17 06/12/17 06/13/17 05:59 05:59 05:59 Intake Total 2520 3791 Output Total 3600 350 Balance 2520 191 -350 The patient continues to lying in the dark holding his head and appears uncomfortable but he is communicating better with me now than yesterday. Allergies/Adverse Reactions: Penicillins Allergy (Verified 06/10/17 20:21) Hives sulfamethoxazole Allergy (Verified 06/10/17 20:21) Hives
[2017-06-12] MEDS ORDERED: ZOLPIDEM TARTRATE 5 MG TAB PO PRN (20:41)
--- NOTE | 2017-06-12 21:13 | GCON ---
[f rep st] CONSULTATION CHIEF COMPLAINT: Headaches and nausea. HISTORY OF PRESENT ILLNESS: This 26-year-old man was admitted to the service at [facility] with a complaint of severe headaches and nausea progressive over the past few weeks. He has a history of congenital intracranial pressure status post cerebral shunt. He denies any changes in vision. He does complain of positional nausea, worsened with rapid movement. MEDICATIONS: Please see his list. ALLERGIES: No known drug allergies. PHYSICAL EXAMINATION: EYES: Visual acuity 20/30 OU at distance. The patient was previously dilate d so no pupillary defect could be obtained. Eyes were soft to palpation. Anterior segment examinat ion within normal limits. Posterior examination: The media was clear. Optic nerve appeared swolle n OU. No heme noted. Macular periphery in vessels within normal limits. ASSESSMENT: In summary, this is a 26-year-old man with known history of congenital increased intrac ranial pressure status post shunt with symptoms of severe headaches, nausea, and bradycardia, noted to have optic nerve swelling both eyes. It is impossible to determine whether this optic nerve swel ling is acute or chronic based on limitations at the bedside examination, as well as unknown prior e xamination. However, in conjunction with his other symptoms, this very likely seems to be additiona l evidence of increased intracranial pressure. The results were called to the patient's attending. /[id number]/MODL
[2017-06-12] MEDS: VENLAFAXINE XR 75 MG CAP PO SCH (21:43)
[2017-06-13] MEDS: DEXAMETHASONE 4 MG/ML VIAL IVP SCH ×2 (00:06→05:58)
[2017-06-13] MEDS: KETOROLAC 30 MG/1 ML SDV IVP PRN (02:14)
[2017-06-13 05:22] LABS: % IMMATURE GRANULYOCYTES 0.4 % (0.0-1.1); ABSOLUTE IMMATURE GRANULOCYTES 0.05 10^3/uL (0.00-0.10); ADD DIFF? NO; ADD MORPH? NO; ADD SCAN? NO; ATYPICAL LYMPHOCYTE FLAG 0 (0-99); FRAGMENT RBC FLAG 0 (0-99); HEMATOCRIT 36.9 % (40.0-51.0); HEMOGLOBIN 13.2 g/dL (13.7-17.5); LEFT SHIFT FLG 0 (0-99); LIPEMIA HEMOLYSIS FLAG 90 (0-99); MEAN CELL HEMOGLOBIN 33.6 pg (27.9-34.1); MEAN CELL HEMOGLOBIN CONCENTR. 35.8 g/dL (32.4-36.7); MEAN CELL VOLUME 93.9 fL (81.5-99.8); MEAN PLATELET VOLUME 9.2 fL (8.7-11.7); PLATELET CLUMPS FLAG 10 (0-99); PLATELET COUNT 173 10^3/uL (150-400); RED BLOOD CELL COUNT 3.93 10^6/uL (4.40-6.38); RED CELL DISTRIBUTION WIDTH 12.4 % (11.5-15.2)
[2017-06-13 05:28] LABS: INR 1.16 (0.83-1.16); PROTIME(PATIENT) 14.8 SEC (12.0-15.0)
[2017-06-13] MEDS: NS W/ 20 KCl/L 1,000 ML IV SCH (05:55)
[2017-06-13] MEDS: VANCOMYCIN 1.25 GM in D5W 250 ML IV SCH (05:56)
--- NOTE | 2017-06-13 07:56 | NEUSURGPN ---
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 Dr Marti will place an external ICP monitor today at the bedside -Shunt series xray demonstrate intact shunt tubing throughout Patient was seen and plan discussed with Dr Marti Subjective: Patient denies headache Objective: AxO x3 EOMI PERRLA CN2-12 intact 5/5 BUE, BLE Sensation intact to light touch BLE Neuro Check Frequency: per routine Urinary Catheter in Place: No - Physician Discussed Patient with Dr.: Marti Patient Seen by Dr.: Marti Neurosurgery Physical Exam - Vitals, I&O, Labs I and O 06/12/17 06/13/17 06/14/17 05:59 05:59 05:59 Intake Total 3791 3098 Output Total 3600 2250 Balance 191 848 Intake: Oral (ml) 300 300 IV Intake (ml) 100 IV Infused (ml) 3391 2798 NS W/ 20 KCl/L 1,000 ml @ 3391 2798 150 mls/hr IV CONT CHALO Rx#:[id number] Output: Urine (ml) 3400 2250 Toilet 1600 Urinal 1800 2250 Emesis (ml) 200 Other: Number of Voids Toilet 2 Number of Emesis 1 Occurrences Microbiology 06/10/17 20:22 Blood Panel (PCR) - Final Blood Staph Coagulase Negative Vital Signs Temp Pulse Resp BP Pulse Ox 36.9 C 630 H 14 119/63 96 06/13/17 04:00 06/13/17 06:00 06/13/17 06:00 06/13/17 06:00 06/13/17 06:00 Laboratory Results 06/13/17 04:15 06/12/17 04:30 ICD10 Worksheet Patient Problems: Problems Problem Status Onset Aspiration pneumonitis Acute Headache Acute Migraine Acute Vomiting Acute
--- NOTE | 2017-06-13 08:53 | PDINTPN ---
Whipped Topping Supervisor Progress Note Assessment/Plan: Assessment/plan: * Aspiration pneumonia-likely pneumonitis for rather than pneumonia -will discontinue Invanz Invanz * Congenital hydrocephalus-status post RESOURCE DEVELOPMENT MANAGER shunt. Papilledema seen by Ophthalmology. -Likely to OR for revision * Migraines-headache markedly improved this morning. -per Neurology * Lfobtjoddl-mbot-nqqbxumm staph. Likely contaminant. * Bradycardia-significant pauses. -with the exception of bicuspid aortic valve, echocardiogram was normal -will consult Cardiology Overall feels better today Subjective: Resting comfortably. Awake and alert. Headache markedly improved. Was ambulating yesterday. Objective: Vital Signs Temp Pulse Resp BP Pulse Ox 36.9 C 630 H 14 119/63 96 06/13/17 04:00 06/13/17 06:00 06/13/17 06:00 06/13/17 06:00 06/13/17 06:00 Microbiology 06/10/17 20:22 Blood Panel (PCR) - Final Blood Staph Coagulase Negative Laboratory Results 06/13/17 04:15 06/12/17 04:30 06/12/17 06/13/17 06/14/17 05:59 05:59 05:59 Intake Total 3791 3098 Output Total 3600 2250 Balance 191 848 PT 14.8 SEC (12.0-15.0) 06/13/17 04:15 INR 1.16 (0.83-1.16) 06/13/17 04:15 Chest e-cxg-hjxjkrtx by myself. Currently clear no evidence of pneumonia Physical Exam - Physical Exam General Appearance: no apparent distress EENT: PERRL/EOMI, normal ENT inspection Neck: non-tender, full range of motion, supple, normal inspection Respiratory: chest non-tender, lungs clear, normal breath sounds Cardiac/Chest: normal peripheral pulses, regular rate, rhythm, bradycardia Peripheral Pulses: 2+: carotid (R), carotid (L), femoral (R), femoral (L), dorsalis-pedis (R), dorsalis-pedis (L) Abdomen: normal bowel sounds, non-tender, soft Male Genitalia: deferred Rectal: deferred Skin: normal color, warm/dry Extremities: normal range of motion, non-tender, normal inspection, normal capillary refill ICD10 Worksheet Patient Problems: Problems Problem Status Onset Aspiration pneumonitis Acute Headache Acute Migraine Acute Vomiting Acute
--- NOTE | 2017-06-13 09:00 | HOSPPROG ---
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 Shunt stable on CT. Hard to correlate if symptomatic with persistent migraine. as above echo pretty normal I do have concern that he had bradycardic syncope and that bradycardia is mediated by elevated ICP CT w decompressed ventricles Shunt: to be revised today CoNS bacteremia: contaminant Aspiration PNA vs pneumonitis: acute emesis. Less likely infection, afebrile. IV Ertapenem Leukocytosis: stress-reaction with aspiration Acute hypoxic resp failure: due to above. IV abx Acute on chronic migraines: PETROLEUM REFINERY LABORER shunt stable on CT, no mass/bleed. Trialing Benadryl, steroids. Imitrex not helpful. Appreciate Neuro consult Congenital hydrocephalus: PETROLEUM REFINERY LABORER well-positioned Diet: regular DVT ppx: Lovenox Disp: warrant ICU admission with acute sepsis Subjective: case d/w dr anderson. less bradycardia on tele (interp by me) Objective: Vital Signs Temp Pulse Resp BP Pulse Ox 36.9 C 630 H 14 119/63 96 06/13/17 04:00 06/13/17 06:00 06/13/17 06:00 06/13/17 06:00 06/13/17 06:00 Microbiology 06/10/17 20:22 Blood Panel (PCR) - Final Blood Staph Coagulase Negative Laboratory Results 06/13/17 04:15 06/12/17 04:30 06/12/17 06/13/17 06/14/17 05:59 05:59 05:59 Intake Total 3791 3098 Output Total 3600 2250 Balance 191 848 PT 14.8 SEC (12.0-15.0) 06/13/17 04:15 INR 1.16 (0.83-1.16) 06/13/17 04:15 - Physical Exam Constitutional: no apparent distress, appears nourished Eyes: PERRL, anicteric sclera Ears, Nose, Mouth, Throat: moist mucous membranes, hearing normal Cardiovascular: regular rate and rhythym, no murmur, rub, or gallop, No bradycardia Respiratory: no respiratory distress, no rales or rhonchi Gastrointestinal: normoactive bowel sounds, soft, non-tender abdomen Genitourinary: No brown in urethra Skin: warm, normal color Musculoskeletal: full muscle strength, no muscle tenderness Neurologic: AAOx3, sensation intact bilaterally Psychiatric: interacting appropriately ICD10 Worksheet Patient Problems: Problems Problem Status Onset Aspiration pneumonitis Acute Headache Acute Migraine Acute Vomiting Acute
--- NOTE | 2017-06-13 09:28 | PDCARPN ---
Cardiology Progress Note Assessment/Plan: Assessment: 1. Sinus austin with pauses up to 3 seconds 2. Hx of hydrocepahlus and DIAMOND POLISHER shunt 3. Bicuspid aortic valve Plan: -heart rate has improved today, no new pauses -think austin due to Increased intracranial pressure -plan for DIAMOND POLISHER shunt correction -will sign off 06/13/17 09:25 Subjective: Luther is feeling better this AM. FINK improved. Hr improved. no pauses Reviewed/Discussed With: family, hospitalist, multidisciplinary team Objective: Vital Signs (8 Hrs) Temp Pulse Resp BP Pulse Ox 06/13/17 06:00 630 H 14 119/63 96 06/13/17 04:00 36.9 C 61 14 118/66 96 06/13/17 02:00 75 14 116/55 L 96 Intake/Output (24 Hrs) 06/12/17 06/13/17 06/14/17 05:59 05:59 05:59 Intake Total 3791 3098 Output Total 3600 2250 Balance 191 848 Intake: Oral (ml) 300 300 IV Intake (ml) 100 IV Infused (ml) 3391 2798 NS W/ 20 KCl/L 1,000 ml @ 3391 2798 150 mls/hr IV CONT CHALO Rx#:[id number] Output: Urine (ml) 3400 2250 Toilet 1600 Urinal 1800 2250 Emesis (ml) 200 Other: Number of Voids Toilet 2 Number of Emesis 1 Occurrences Result Diagrams: 06/13/17 04:15 06/12/17 04:30 Cardiac Labs: Cardiac Lab Results (72 Hrs) 06/11/17 06/11/17 22:30 17:25 Troponin I 0.066 H 0.085 H - Physical Exam Constitutional: WDWN, no apparent distress Neurologic: AAOx3, CN II-XII grossly intact Psychiatric: cooperative, interactive ICD10 Worksheet Patient Problems: Problems Problem Status Onset Aspiration pneumonitis Acute Headache Acute Migraine Acute Vomiting Acute
[2017-06-13] MEDS: ERTAPENEM 1 GM in NS 100 ML IV SCH (10:59)
[2017-06-13] MEDS ORDERED: LIDOCAINE 1% 300 MG/30 ML SDV ONE (12:42)
[2017-06-13] MEDS ORDERED: LIDOCAINE 1% 300 MG/30 ML SDV IF ONE (13:00)
[2017-06-13] MEDS: GABAPENTIN 300 MG CAP PO SCH ×2 (13:26→21:13)
[2017-06-13] MEDS: TOPIRAMATE 100 MG TAB PO SCH ×2 (13:26→21:13)
[2017-06-13] MEDS ORDERED: VANCOMYCIN HCL/NORMAL SALINE 250 ML IV SCH (14:00)
--- NOTE | 2017-06-13 15:00 | NEUROPROG ---
Assessment: I had a conversation with the patient's mother and father who are in the room as well and also talked to Dr. Valles on the phone about the case and agree that pursuing evaluation with funduscopic exam and perhaps lumbar puncture is reasonable since we are not really making any progress on his case and increased intracranial pressure should be ruled out. The extremely refractory nature of his headaches is certainly not the typical story for migraine. Total unit time of 25 minutes. 06/13/17: Pt seen earlier and agree with the plan. Steroids stopped. FINK is 11/20 today. Shunt revision planned. Objective: Vital Signs Temp Pulse Resp BP Pulse Ox 36.1 C 55 L 14 122/68 H 98 06/13/17 12:00 06/13/17 14:00 06/13/17 14:00 06/13/17 14:00 06/13/17 14:00 Microbiology 06/10/17 20:22 Blood Panel (PCR) - Final Blood Staph Coagulase Negative Laboratory Results 06/13/17 04:15 06/12/17 04:30 06/12/17 06/13/17 06/14/17 05:59 05:59 05:59 Intake Total 3791 3098 Output Total 3600 2250 Balance 191 848 PT 14.8 SEC (12.0-15.0) 06/13/17 04:15 INR 1.16 (0.83-1.16) 06/13/17 04:15 Allergies/Adverse Reactions: Penicillins Allergy (Verified 06/10/17 20:21) Hives sulfamethoxazole Allergy (Verified 06/10/17 20:21) Hives
[2017-06-13] MEDS ORDERED: MIDAZOLAM 2 MG/2 ML VIAL IVP ONE (15:45)
[2017-06-13] MEDS ORDERED: fentaNYL 100 MCG/2 ML INJ IV ONE (15:45)
[2017-06-13] MEDS ORDERED: LIDO/EPI 1% **Not for Epidural 20 ML MDV NB ONE (15:46)
--- NOTE | 2017-06-13 19:32 | GPN ---
[f rep st] PROCEDURE NOTE DATE OF PROCEDURE: 06/13/2017 RECORD LABEL INTERN: None. PROCEDURE: Placement of right frontal intracranial pressure monitor. PREOPERATIVE DIAGNOSIS: Possible shunt malfunction. POSTOPERATIVE DIAGNOSIS: Possible shunt malfunction. BRIEF CLINICAL HISTORY: The patient is a 26-year-old man with long-term shunted hydrocephalus. He had presented to the hospital the other day with headaches and some bradycardia as well as bacteremi a from possible aspiration pneumonia. He was seen by our team and it was thought that he may need a shunt revision, although his CT showed a slit-like left ventricle which was completely collapsed ar ound the catheter, and no ventriculomegaly. His headache is gone today, so I spoke with him and his family about the possibility of placing an ICP monitor as we did not have very much objective evide nce in terms of what exactly was going on with the shunt, and they agreed to proceed. DESCRIPTION OF PROCEDURE: After informed consent was obtained from the patient, the patient was giv en conscious sedation with 50 mcg of fentanyl and 1 mg of Versed, which was administered by the nurs trena and was directly supervised by me. We continued to monitor the vital signs throughout the course of the procedure. A small bit of hair was clipped in the right frontal region, and the region was p repped and draped in normal sterile fashion. Then, 8 cc of 1% lidocaine with epinephrine was infilt rated into the skin for hemostasis. The head was draped appropriately. A stab incision was made near the hairline, and a twist drill was used to create a small bur hole un [place] the stab incision. The Codman monitor was then tunneled sterilely, and was appropriately zeroed , and the 0 reference was 496. The dura was then punctured and the monitor was placed into the brai n at a depth of approximately 1.5 cm. The waveform appeared to be good and the initial ICP was nega tive 2. At this point, the stab incision was closed using a 4-0 nylon vertical mattress stitch, and the catheter was secured to the skin using a 4-0 nylon stitch. As well, the wire was coiled 6 time s and secured to the dressings. At the end of the procedure, the patient had tolerated it well with no complications. Bleeding was minimal. The conscious sedation had no complications. /[id number]/MODL
[2017-06-13] MEDS: VENLAFAXINE XR 75 MG CAP PO SCH (21:13)
[2017-06-14 06:47] LABS: % IMMATURE GRANULYOCYTES 0.7 % (0.0-1.1); ABSOLUTE IMMATURE GRANULOCYTES 0.09 10^3/uL (0.00-0.10); ADD DIFF? NO; ADD MORPH? NO; ADD SCAN? NO; ATYPICAL LYMPHOCYTE FLAG 10 (0-99); FRAGMENT RBC FLAG 0 (0-99); HEMATOCRIT 38.6 % (40.0-51.0); HEMOGLOBIN 13.3 g/dL (13.7-17.5); LEFT SHIFT FLG 0 (0-99); LIPEMIA HEMOLYSIS FLAG 90 (0-99); MEAN CELL HEMOGLOBIN 33.2 pg (27.9-34.1); MEAN CELL HEMOGLOBIN CONCENTR. 34.5 g/dL (32.4-36.7); MEAN CELL VOLUME 96.3 fL (81.5-99.8); MEAN PLATELET VOLUME 9.4 fL (8.7-11.7); PLATELET CLUMPS FLAG 0 (0-99); PLATELET COUNT 167 10^3/uL (150-400); RED BLOOD CELL COUNT 4.01 10^6/uL (4.40-6.38); RED CELL DISTRIBUTION WIDTH 12.6 % (11.5-15.2)
--- NOTE | 2017-06-14 08:20 | NEUSURGPN ---
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 Dr Marti placed internal ICP monitor and monitor through the weekend, will consider shunt manipulation next week. If ICP consistently high may need revision sooner. -Continue to monitor ICP q1-2 hours -Call neurosurgery with sustained ICP >25 -Shunt series xray demonstrate intact shunt tubing throughout -Call neurosurgery with any questions/concerns discussed with Dr Marti Subjective: Patient resting, mild headache Objective: AxO x3 EOMI PERRLA CN2-12 intact 5/5 BUE, BLE Sensation intact to light touch BLE ICP monitor in place beneath head wrap Neuro Check Frequency: per routine Urinary Catheter in Place: No - Physician Discussed Patient with Dr.: Marti Neurosurgery Physical Exam - Vitals, I&O, Labs I and O 06/13/17 06/14/17 06/15/17 05:59 05:59 05:59 Intake Total 3098 2770 Output Total 2250 Balance 848 2770 Intake: Oral (ml) 300 740 IV Infused (ml) 2798 2030 NS W/ 20 KCl/L 1,000 ml @ 2798 2030 150 mls/hr IV CONT CHALO Rx#:[id number] Output: Urine (ml) 2250 Urinal 2250 Other: Number of Voids Urinal 3 Microbiology 06/10/17 20:22 Blood Culture - Final Blood Staphylococcus Epidermidis Staphylococcus Sp Coag Neg#2 Blood Panel (PCR) - Final Staph Coagulase Negative Vital Signs Temp Pulse Resp BP Pulse Ox 36.7 C 58 L 13 120/74 96 06/13/17 17:56 06/14/17 07:00 06/14/17 07:00 06/14/17 07:00 06/14/17 07:00 Laboratory Results 06/14/17 06:20 06/12/17 04:30 ICD10 Worksheet Patient Problems: Problems Problem Status Onset Aspiration pneumonitis Acute Headache Acute Migraine Acute Vomiting Acute
[2017-06-14] MEDS: TOPIRAMATE 100 MG TAB PO SCH ×2 (09:27→20:55)
[2017-06-14] MEDS: GABAPENTIN 300 MG CAP PO SCH ×2 (09:27→20:55)
[2017-06-14] MEDS: ENOXAPARIN 40 MG/0.4 ML SYR SC SCH (09:28)
--- NOTE | 2017-06-14 09:50 | PDINTPN ---
Velvet Weaver Progress Note Assessment/Plan: Assessment/plan: * Aspiration pneumonia-likely pneumonitis for rather than pneumonia -will discontinue Invanz Invanz * Congenital hydrocephalus-status post CHIEF INSPECTOR shunt. Papilledema seen by Ophthalmology. -status post ICP monitor. Pressures are currently low. Headache is currently 1-2/ * Migraines-headache markedly improved this morning. -per Neurology * Uuocqncatk-fcbp-kdkdwupy staph. Likely contaminant. * Bradycardia-resolved Overall feels better today Subjective: Resting comfortably. Headache is minimal this morning. Objective: Vital Signs Temp Pulse Resp BP Pulse Ox 36.7 C 80 12 115/64 97 06/13/17 17:56 06/14/17 09:34 06/14/17 09:00 06/14/17 09:00 06/14/17 09:34 Microbiology 06/10/17 20:22 Blood Culture - Final Blood Staphylococcus Epidermidis Staphylococcus Sp Coag Neg#2 Blood Panel (PCR) - Final Staph Coagulase Negative Laboratory Results 06/14/17 06:20 06/12/17 04:30 06/13/17 06/14/17 06/15/17 05:59 05:59 05:59 Intake Total 3098 2770 Output Total 2250 Balance 848 2770 PT 14.8 SEC (12.0-15.0) 06/13/17 04:15 INR 1.16 (0.83-1.16) 06/13/17 04:15 Physical Exam - Physical Exam General Appearance: alert, no apparent distress EENT: PERRL/EOMI, normal ENT inspection, pharynx normal, TMs normal Neck: non-tender, full range of motion, supple, normal inspection Respiratory: chest non-tender, lungs clear, normal breath sounds Cardiac/Chest: normal peripheral pulses, regular rate, rhythm Peripheral Pulses: 2+: carotid (R), carotid (L), femoral (R), femoral (L), dorsalis-pedis (R), dorsalis-pedis (L) Abdomen: normal bowel sounds, non-tender, soft Male Genitalia: deferred Rectal: deferred ICD10 Worksheet Patient Problems: Problems Problem Status Onset Aspiration pneumonitis Acute Headache Acute Migraine Acute Vomiting Acute
[2017-06-14] MEDS: NS W/ 20 KCl/L 1,000 ML IV SCH (09:51)
--- NOTE | 2017-06-14 10:06 | HOSPPROG ---
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 Shunt stable on CT. Hard to correlate if symptomatic with persistent migraine. as above echo pretty normal I do have concern that he had bradycardic syncope and that bradycardia is mediated by elevated ICP CT w decompressed ventricles Shunt: I suspect he has intermittent shunt obstruction as his FINK goes w bradycardia hopefully he will have FINK while he has ICP in place CoNS bacteremia: contaminant gm neg bacteremia: contaminant Aspiration PNA vs pneumonitis: acute emesis. Less likely infection, afebrile. IV Ertapenem Leukocytosis: stress-reaction with aspiration doing well off abx Acute hypoxic resp failure: due to above. Acute on chronic migraines: PHARMACEUTICAL SCIENTIST shunt stable on CT, no mass/bleed. Trialing Benadryl, steroids. Imitrex not helpful. Appreciate Neuro consult Congenital hydrocephalus: PHARMACEUTICAL SCIENTIST well-positioned Diet: regular DVT ppx: Lovenox Disp: warrant ICU admission with acute sepsis Subjective: ICP drain placed yesterday. normal ICP and no FINK or bradycardia. case d/w dr anderson Objective: Vital Signs Temp Pulse Resp BP Pulse Ox 36.7 C 80 12 115/64 97 06/13/17 17:56 06/14/17 09:34 06/14/17 09:00 06/14/17 09:00 06/14/17 09:34 Microbiology 06/10/17 20:22 Blood Culture - Final Blood Staphylococcus Epidermidis Staphylococcus Sp Coag Neg#2 Blood Panel (PCR) - Final Staph Coagulase Negative Laboratory Results 06/14/17 06:20 06/12/17 04:30 06/13/17 06/14/17 06/15/17 05:59 05:59 05:59 Intake Total 3098 2770 Output Total 2250 Balance 848 2770 PT 14.8 SEC (12.0-15.0) 06/13/17 04:15 INR 1.16 (0.83-1.16) 06/13/17 04:15 - Physical Exam Constitutional: no apparent distress, appears nourished Eyes: PERRL, anicteric sclera Ears, Nose, Mouth, Throat: moist mucous membranes, hearing normal Cardiovascular: regular rate and rhythym, no murmur, rub, or gallop, systolic murmur Respiratory: no respiratory distress, no rales or rhonchi Gastrointestinal: normoactive bowel sounds, soft, non-tender abdomen Genitourinary: no bladder fullness, No brown in urethra Skin: warm, normal color Musculoskeletal: full muscle strength, no muscle tenderness Neurologic: AAOx3, sensation intact bilaterally ICD10 Worksheet Patient Problems: Problems Problem Status Onset Aspiration pneumonitis Acute Headache Acute Migraine Acute Vomiting Acute
[2017-06-14] MEDS: VENLAFAXINE XR 75 MG CAP PO SCH (20:55)
[2017-06-15] MEDS: ENOXAPARIN 40 MG/0.4 ML SYR SC SCH (08:37)
[2017-06-15] MEDS: GABAPENTIN 300 MG CAP PO SCH ×2 (08:37→20:50)
[2017-06-15] MEDS: TOPIRAMATE 100 MG TAB PO SCH ×2 (08:37→20:51)
--- NOTE | 2017-06-15 09:50 | PDINTPN ---
Manufacturer'S Service Representative Progress Note Assessment/Plan: Assessment/plan: * Aspiration pneumonia-likely pneumonitis for rather than pneumonia -will discontinue Invanz * Congenital hydrocephalus-status post INFORMATION TECHNOLOGY SPECIALIST shunt. Papilledema seen by Ophthalmology. -status post ICP monitor. Pressures are currently low. Headache markedly better * Migraines-headache markedly improved this morning. -per Neurology * Mywskchamx-royb-eixgkbxx staph. Likely contaminant. * Bradycardia-resolved Overall feels better today Subjective: Comfortable. Headache mostly resolved. Objective: Vital Signs Temp Pulse Resp BP Pulse Ox 36.8 C 65 17 121/72 H 99 06/15/17 08:00 06/15/17 08:00 06/15/17 08:00 06/15/17 08:00 06/15/17 08:00 Laboratory Results 06/14/17 06:20 06/12/17 04:30 06/14/17 06/15/17 06/16/17 05:59 05:59 05:59 Intake Total 2770 3744 Balance 2770 3744 PT 14.8 SEC (12.0-15.0) 06/13/17 04:15 INR 1.16 (0.83-1.16) 06/13/17 04:15 Physical Exam - Physical Exam General Appearance: alert, no apparent distress EENT: PERRL/EOMI, normal ENT inspection Neck: non-tender, full range of motion, supple, normal inspection Respiratory: chest non-tender, lungs clear, normal breath sounds Cardiac/Chest: normal peripheral pulses, regular rate, rhythm Peripheral Pulses: 2+: carotid (R), carotid (L), femoral (R), femoral (L), dorsalis-pedis (R), dorsalis-pedis (L) Abdomen: normal bowel sounds, non-tender, soft Male Genitalia: deferred Rectal: deferred Skin: normal color, warm/dry ICD10 Worksheet Patient Problems: Problems Problem Status Onset Aspiration pneumonitis Acute Headache Acute Migraine Acute Vomiting Acute
--- NOTE | 2017-06-15 11:47 | HOSPPROG ---
Hospitalist Progress Note Assessment/Plan: 26 yo M new to my care 06/15 w SUPERVISOR NUT PROCESSING shunt 2/ congenital hydrocephalus a/w sycnope , aspiration and bradycardia Syncope with sinus pauses maybe vasovagal, but bradycardia w pauses could be due to increased icp Shunt: I suspect he has intermittent shunt obstruction as his FINK goes w bradycardia hopefully he will have FINK while he has ICP in place CoNS bacteremia: contaminant gm neg bacteremia: contaminant -will repeat cultures Aspiration PNA vs pneumonitis -monitor off abx Leukocytosis: stress-reaction with aspiration doing well off abx Acute hypoxic resp failure: due to above. Acute on chronic migraines: SUPERVISOR NUT PROCESSING shunt stable on CT, no mass/bleed. Trialing Benadryl, steroids. Imitrex not helpful. Appreciate Neuro consult Congenital hydrocephalus: SUPERVISOR NUT PROCESSING well-positioned Diet: regular DVT ppx: Lovenox Disp:cont icu care given icp monitoring Subjective: no headache today. no fever or chills. no cough/sob Objective: Vital Signs Temp Pulse Resp BP Pulse Ox 36.8 C 68 12 121/72 H 99 06/15/17 08:00 06/15/17 10:00 06/15/17 10:00 06/15/17 08:00 06/15/17 08:00 Laboratory Results 06/14/17 06:20 06/12/17 04:30 06/14/17 06/15/17 06/16/17 05:59 05:59 05:59 Intake Total 2770 3744 Balance 2770 3744 PT 14.8 SEC (12.0-15.0) 06/13/17 04:15 INR 1.16 (0.83-1.16) 06/13/17 04:15 - Physical Exam Constitutional: no apparent distress, appears nourished, not in pain Cardiovascular: regular rate and rhythym, no murmur, rub, or gallop Respiratory: no respiratory distress, no rales or rhonchi, clear to auscultation Gastrointestinal: normoactive bowel sounds, soft, non-tender abdomen, no palpable masses, No guarding, No rebound Neurologic: AAOx3, sensation intact bilaterally ICD10 Worksheet Patient Problems: Problems Problem Status Onset Migraine Acute Aspiration pneumonitis Acute Vomiting Acute Headache Acute
--- NOTE | 2017-06-15 11:53 | SOAPPROG ---
SOAP Progress Note Assessment/Plan: Assessment: 26 yo M hx of congenital hydrocephalus with headaches Plan: neuro: stable, ICPS have been 2-7 while laying down and negative pressure while up. Shunt may be over draining CSF. Will continue to monitor ICP over the weekend and follow course continue PT/OT/St please call with neuro changes discussed with Dr Ortega 06/15/17 11:50 Subjective: mild headache this am, No N/V. No weakness. Objective: Vital Signs Temp Pulse Resp BP Pulse Ox 36.8 C 68 12 121/72 H 99 06/15/17 08:00 06/15/17 10:00 06/15/17 10:00 06/15/17 08:00 06/15/17 08:00 Laboratory Results 06/14/17 06:20 06/12/17 04:30 06/14/17 06/15/17 06/16/17 05:59 05:59 05:59 Intake Total 2770 3744 Balance 2770 3744 PT 14.8 SEC (12.0-15.0) 06/13/17 04:15 INR 1.16 (0.83-1.16) 06/13/17 04:15 AAOX4, +FC PERRL, EOMI, no facial droop MARLINE x 4 + light touch C/D/I at ICP sight ICD10 Worksheet Patient Problems: Problems Problem Status Onset Aspiration pneumonitis Acute Headache Acute Migraine Acute Vomiting Acute
--- NOTE | 2017-06-15 13:11 | NEUROPROG ---
Assessment: I had a conversation with the patient's mother and father who are in the room as well and also talked to Dr. Valles on the phone about the case and agree that pursuing evaluation with funduscopic exam and perhaps lumbar puncture is reasonable since we are not really making any progress on his case and increased intracranial pressure should be ruled out. The extremely refractory nature of his headaches is certainly not the typical story for migraine. Total unit time of 25 minutes. 06/13/17: Pt seen earlier and agree with the plan. Steroids stopped. FINK is 11/20 today. Shunt revision planned. 06/15/17: At this point, it seems reasonable to consider an adjustable shunt given to lack of clear migraine as the acute issue. Neurosurgery is continuing to monitor and still considering the pros and cons of shunt revision. Discussed with patient and his sister. Subjective: Pt reports that headache is in the 1-3/10 range most of the time and not the severe, migrainous pain in the last 48 hrs or so. He feels headache is a little worse when upright but also variable. most of the pain is behind the eyes. I asked how close to his baseline pain and he says fairly close. Objective: Vital Signs Temp Pulse Resp BP Pulse Ox 37 C 90 22 H 127/79 H 98 06/15/17 12:00 06/15/17 12:00 06/15/17 12:00 06/15/17 12:00 06/15/17 12:00 Laboratory Results 06/14/17 06:20 06/12/17 04:30 06/14/17 06/15/17 06/16/17 05:59 05:59 05:59 Intake Total 2770 3744 Balance 2770 3744 PT 14.8 SEC (12.0-15.0) 06/13/17 04:15 INR 1.16 (0.83-1.16) 06/13/17 04:15 Alert and attentive with clear and fluent speech if not a little bit slowed down. ICP low when up and 1-3 range when supine on average. Allergies/Adverse Reactions: Penicillins Allergy (Verified 06/10/17 20:21) Hives sulfamethoxazole Allergy (Verified 06/10/17 20:21) Hives
[2017-06-15] MEDS: VENLAFAXINE XR 75 MG CAP PO SCH (20:51)
[2017-06-16] MEDS: GABAPENTIN 300 MG CAP PO SCH ×2 (08:58→20:50)
[2017-06-16] MEDS: TOPIRAMATE 100 MG TAB PO SCH ×2 (08:59→20:50)
[2017-06-16] MEDS: ENOXAPARIN 40 MG/0.4 ML SYR SC SCH (08:59)
--- NOTE | 2017-06-16 09:46 | PDINTPN ---
Experienced Truck Driver Progress Note Assessment/Plan: Assessment/plan: * Aspiration pneumonia-likely pneumonitis for rather than pneumonia -will discontinue Invanz * Congenital hydrocephalus-status post SPIRITUAL MINISTER shunt. Papilledema seen by Ophthalmology. -status post ICP monitor. Pressures are currently low. Headache markedly better -awaiting Neurosurgery decision concerning surgery * Migraines-headache markedly improved this morning. -per Neurology * Pckmxnnkmc-yrgq-kwsyureg staph. Likely contaminant. * Bradycardia-resolved Overall feels better today Subjective: Sitting up in chair. Resting comfortably. Headache is mostly resolved. Objective: Vital Signs Temp Pulse Resp BP Pulse Ox 36.6 C 53 L 12 119/63 98 06/16/17 07:31 06/16/17 07:31 06/16/17 07:31 06/16/17 07:31 06/16/17 07:31 Microbiology 06/10/17 20:22 Blood Culture - Final Blood Staphylococcus Epidermidis Staphylococcus Sp Coag Neg#2 Blood Panel (PCR) - Final Staph Coagulase Negative Laboratory Results 06/14/17 06:20 06/12/17 04:30 06/15/17 06/16/17 06/17/17 05:59 05:59 05:59 Intake Total 3744 1020 Balance 3744 1020 PT 14.8 SEC (12.0-15.0) 06/13/17 04:15 INR 1.16 (0.83-1.16) 06/13/17 04:15 Physical Exam - Physical Exam General Appearance: WD/WN, alert, no apparent distress EENT: PERRL/EOMI, normal ENT inspection, pharynx normal, TMs normal Neck: non-tender, full range of motion, supple, normal inspection Respiratory: chest non-tender, lungs clear, normal breath sounds Cardiac/Chest: normal peripheral pulses, regular rate, rhythm Peripheral Pulses: 2+: carotid (R), carotid (L), femoral (R), femoral (L), dorsalis-pedis (R), dorsalis-pedis (L) Abdomen: normal bowel sounds, non-tender, soft Male Genitalia: deferred Rectal: deferred Skin: normal color, warm/dry Extremities: normal range of motion, non-tender, normal inspection, normal capillary refill ICD10 Worksheet Patient Problems: Problems Problem Status Onset Aspiration pneumonitis Acute Headache Acute Migraine Acute Vomiting Acute
--- NOTE | 2017-06-16 12:19 | HOSPPROG ---
Hospitalist Progress Note Assessment/Plan: 26 yo M new to my care 06/15 w CORE OVEN TENDER shunt / congenital hydrocephalus a/w sycnope , aspiration and bradycardia Syncope with sinus pauses maybe vasovagal, but bradycardia w pauses could be due to increased icp Shunt: I suspect he has intermittent shunt obstruction as his FINK goes w bradycardia hopefully he will have FINK while he has ICP in place CoNS bacteremia: contaminant gm neg bacteremia: contaminant -repeat blood cultures pending Aspiration PNA vs pneumonitis -monitor off abx Leukocytosis: stress-reaction with aspiration doing well off abx Acute hypoxic resp failure: due to above. Acute on chronic migraines: CORE OVEN TENDER shunt stable on CT, no mass/bleed. Trialing Benadryl, steroids. Imitrex not helpful. Appreciate Neuro consult Congenital hydrocephalus: CORE OVEN TENDER well-positioned Diet: regular DVT ppx: Lovenox Disp:cont icu care given icp monitoring Subjective: minimal headache. no cough. no fever or chills Objective: Vital Signs Temp Pulse Resp BP Pulse Ox 36.4 C 95 16 116/67 97 06/16/17 12:00 06/16/17 12:00 06/16/17 12:00 06/16/17 12:00 06/16/17 12:00 Microbiology 06/10/17 20:22 Blood Culture - Final Blood Staphylococcus Epidermidis Staphylococcus Sp Coag Neg#2 Blood Panel (PCR) - Final Staph Coagulase Negative Laboratory Results 06/14/17 06:20 06/12/17 04:30 06/15/17 06/16/17 06/17/17 05:59 05:59 05:59 Intake Total 3744 1020 Balance 3744 1020 PT 14.8 SEC (12.0-15.0) 06/13/17 04:15 INR 1.16 (0.83-1.16) 06/13/17 04:15 - Physical Exam Constitutional: no apparent distress, appears nourished, not in pain Cardiovascular: regular rate and rhythym, no murmur, rub, or gallop Respiratory: no respiratory distress, no rales or rhonchi, clear to auscultation ICD10 Worksheet Patient Problems: Problems Problem Status Onset Migraine Acute Aspiration pneumonitis Acute Vomiting Acute Headache Acute
--- NOTE | 2017-06-16 12:38 | SOAPPROG ---
SOAP Progress Note Assessment/Plan: Assessment: 26 yo M hx of congenital hydrocephalus with headaches Plan: neuro: stable, ICPS have been 2-7 while laying down and negative pressure while up. Shunt may be over draining CSF. Will continue to monitor ICP over the weekend and follow course family to discuss case with Dr Marti tomorrow continue PT/OT/St please call with neuro changes discussed with Dr Ortega 06/15/17 11:50 06/16/17 12:37 Subjective: headaches improving, no N/V. No fevers Objective: Vital Signs Temp Pulse Resp BP Pulse Ox 36.4 C 95 16 116/67 97 06/16/17 12:00 06/16/17 12:00 06/16/17 12:00 06/16/17 12:00 06/16/17 12:00 Microbiology 06/10/17 20:22 Blood Culture - Final Blood Staphylococcus Epidermidis Staphylococcus Sp Coag Neg#2 Blood Panel (PCR) - Final Staph Coagulase Negative Laboratory Results 06/14/17 06:20 06/12/17 04:30 06/15/17 06/16/17 06/17/17 05:59 05:59 05:59 Intake Total 3744 1020 Balance 3744 1020 PT 14.8 SEC (12.0-15.0) 06/13/17 04:15 INR 1.16 (0.83-1.16) 06/13/17 04:15 AAOx4, +FC PERRL, EOMI, no facial droop 5/5 + light touch ICD10 Worksheet Patient Problems: Problems Problem Status Onset Aspiration pneumonitis Acute Headache Acute Migraine Acute Vomiting Acute
--- NOTE | 2017-06-16 18:43 | NEUROPROG ---
Assessment: I had a conversation with the patient's mother and father who are in the room as well and also talked to Dr. Valles on the phone about the case and agree that pursuing evaluation with funduscopic exam and perhaps lumbar puncture is reasonable since we are not really making any progress on his case and increased intracranial pressure should be ruled out. The extremely refractory nature of his headaches is certainly not the typical story for migraine. Total unit time of 25 minutes. 06/13/17: Pt seen earlier and agree with the plan. Steroids stopped. FINK is 11/20 today. Shunt revision planned. 06/15/17: At this point, it seems reasonable to consider an adjustable shunt given to lack of clear migraine as the acute issue. Neurosurgery is continuing to monitor and still considering the pros and cons of shunt revision. Discussed with patient and his sister. 06/16/17: Pt to be evaluated for shunting tomorrow or other modifications per neurosurgery. I am off service tomorrow and Dr. Mata is available if needed. Pt already has a neurologist and should follow up with him unless he rather see me while in the area. Thanks. Objective: Vital Signs Temp Pulse Resp BP Pulse Ox 36.5 C 79 14 120/56 L 96 06/16/17 16:00 06/16/17 17:48 06/16/17 17:48 06/16/17 16:00 06/16/17 17:48 Microbiology 06/10/17 20:22 Blood Culture - Final Blood Staphylococcus Epidermidis Staphylococcus Sp Coag Neg#2 Blood Panel (PCR) - Final Staph Coagulase Negative Laboratory Results 06/14/17 06:20 06/12/17 04:30 06/15/17 06/16/17 06/17/17 05:59 05:59 05:59 Intake Total 3744 1020 1850 Balance 3744 1020 1850 PT 14.8 SEC (12.0-15.0) 06/13/17 04:15 INR 1.16 (0.83-1.16) 06/13/17 04:15 Allergies/Adverse Reactions: Penicillins Allergy (Verified 06/10/17 20:21) Hives sulfamethoxazole Allergy (Verified 06/10/17 20:21) Hives
[2017-06-16] MEDS: VENLAFAXINE XR 75 MG CAP PO SCH (20:50)
[2017-06-17] MEDS: GABAPENTIN 300 MG CAP PO SCH ×2 (08:27→20:51)
[2017-06-17] MEDS: TOPIRAMATE 100 MG TAB PO SCH ×2 (08:27→20:52)
[2017-06-17] MEDS: ENOXAPARIN 40 MG/0.4 ML SYR SC SCH ×2 (08:27→21:12)
--- NOTE | 2017-06-17 08:36 | NEUSURGPN ---
Assessment/Plan: Assessment: 26 yo M hx of congenital hydrocephalus with headaches Plan: neuro: stable, ICPS have been <6 while laying down and negative pressure while up. Has had mild consistent headaches. Denies any nausea, dizziness. No reported changes with position this morning. family to discuss case with Dr Marti today Continue ICP monitoring at this time continue PT/OT/St please call with neuro changes discussed with Dr Marti Subjective: mild consisten headaches with little change management lead the last few days. Denies any nausea, vomiting. Objective: NAD A&Ox3 MAEx4 5/5 and equal in BUE and BLE. CN II-XII grossly intact, EOMI, PERRLA - Physician Discussed Patient with Dr.: Marti Neurosurgery Physical Exam - Vitals, I&O, Labs I and O 06/16/17 06/17/17 06/18/17 05:59 05:59 05:59 Intake Total 1020 2050 Balance 1020 2050 Intake: Oral (ml) 1020 0 Other: Intake Quantity Yes Sufficient Output Comment Toilet not observed Number of Voids Toilet 2 Urinal 1 1 Number of Stools Urinal 1 1 Microbiology 06/10/17 20:22 Blood Culture - Final Blood Staphylococcus Epidermidis Staphylococcus Sp Coag Neg#2 Blood Panel (PCR) - Final Staph Coagulase Negative Vital Signs Temp Pulse Resp BP Pulse Ox 36.4 C 70 22 H 109/64 100 06/17/17 08:00 06/17/17 08:00 06/17/17 08:00 06/17/17 08:00 06/17/17 08:00 Laboratory Results 06/14/17 06:20 06/12/17 04:30 ICD10 Worksheet Patient Problems: Problems Problem Status Onset Aspiration pneumonitis Acute Headache Acute Migraine Acute Vomiting Acute
--- NOTE | 2017-06-17 11:38 | HOSPPROG ---
Hospitalist Progress Note Assessment/Plan: 26 yo M new to my care 06/15 w HOOP BENDING MACHINE OPERATOR shunt 2/ congenital hydrocephalus a/w sycnope , aspiration and bradycardia Syncope with sinus pauses maybe vasovagal, but bradycardia w pauses could be due to increased icp Shunt: I suspect he has intermittent shunt obstruction as his FINK goes w bradycardia hopefully he will have FINK while he has ICP in place CoNS bacteremia: contaminant - repeat blood cultures have not grown any organisms Aspiration PNA vs pneumonitis -monitor off abx Leukocytosis: stress-reaction with aspiration doing well off abx Acute hypoxic resp failure: due to above. Acute on chronic migraines: HOOP BENDING MACHINE OPERATOR shunt stable on CT, no mass/bleed. Trialing Benadryl, steroids. Imitrex not helpful. Appreciate Neuro consult Congenital hydrocephalus: HOOP BENDING MACHINE OPERATOR well-positioned Diet: regular DVT ppx: Lovenox Disp: I discussed the case with Mayuri Disla from neurosurgery who is accepted Mr. Cintron as a primary neuro surgical patient. Hospital Medicine to transfer care to Neurosurgery awaiting the decision for shunt revision. Please call with further questions Subjective: continues to have low-grade headache. Denies any new numbness or weakness. Denies any syncope. He did have episode of bradycardia overnight that was associated with ICP of 6. Objective: Vital Signs Temp Pulse Resp BP Pulse Ox 36.4 C 81 19 120/51 L 99 06/17/17 08:00 06/17/17 10:00 06/17/17 10:00 06/17/17 10:00 06/17/17 10:00 Microbiology 06/10/17 20:22 Blood Culture - Final Blood Staphylococcus Epidermidis Staphylococcus Sp Coag Neg#2 Blood Panel (PCR) - Final Staph Coagulase Negative Laboratory Results 06/14/17 06:20 06/12/17 04:30 06/16/17 06/17/17 06/18/17 05:59 05:59 05:59 Intake Total 1020 0 Balance 1020 0 PT 14.8 SEC (12.0-15.0) 06/13/17 04:15 INR 1.16 (0.83-1.16) 06/13/17 04:15 - Physical Exam Constitutional: no apparent distress, appears nourished, not in pain Neurologic: AAOx3, sensation intact bilaterally ICD10 Worksheet Patient Problems: Problems Problem Status Onset Migraine Acute Aspiration pneumonitis Acute Vomiting Acute Headache Acute
[2017-06-17] MEDS: VENLAFAXINE XR 75 MG CAP PO SCH (20:52)
[2017-06-18] MEDS ORDERED: MIDAZOLAM 2 MG/2 ML VIAL ONE (06:47)
[2017-06-18] MEDS ORDERED: fentaNYL 100 MCG/2 ML INJ ONE (06:48)
[2017-06-18] MEDS ORDERED: fentaNYL 100 MCG/2 ML INJ IVP ONE (07:00)
[2017-06-18] MEDS ORDERED: LIDO/EPI 1% **Not for Epidural 20 ML MDV NB ONE (07:00)
[2017-06-18] MEDS ORDERED: MIDAZOLAM 2 MG/2 ML VIAL IVP ONE (07:00)
[2017-06-18] MEDS: GABAPENTIN 300 MG CAP PO SCH ×2 (08:11→20:19)
[2017-06-18] MEDS: TOPIRAMATE 100 MG TAB PO SCH ×2 (08:11→20:19)
--- NOTE | 2017-06-18 08:11 | NEUSURGPN ---
Assessment/Plan: Assessment: 26 yo M hx of congenital hydrocephalus with headaches Plan: His RN REVIEW shunt was externalized bgamish Marti this morning, set at 15 and then clamped. Will monitor his symptoms and his ICP today. If a sustained ICP >15, the nurse is instructed to open ventric and notify neurosurgery immediately. Continue ICP monitoring at this time continue PT/OT/ST please call with neuro changes Subjective: Denies any new pain, nausea, dizziness Objective: NAD A&Ox3 MAEx4 5/5 and equal in BUE and BLE. CN II-XII grossly intact. EVD intact - Physician Patient Seen by Dr.: Marti Neurosurgery Physical Exam - Vitals, I&O, Labs I and O 06/17/17 06/18/17 06/19/17 05:59 05:59 05:59 Intake Total 2050 1500 Output Total 1350 Balance 2050 150 Intake: Oral (ml) 2050 1500 Output: Urine (ml) 1350 Toilet 1350 Other: Intake Quantity Yes Sufficient Number of Voids Toilet 2 Urinal 1 Number of Stools Urinal 1 Vital Signs Temp Pulse Resp BP Pulse Ox 36.8 C 76 14 119/84 H 100 06/18/17 04:45 06/18/17 07:00 06/18/17 07:00 06/18/17 07:00 06/18/17 07:00 Laboratory Results 06/14/17 06:20 06/12/17 04:30 ICD10 Worksheet Patient Problems: Problems Problem Status Onset Aspiration pneumonitis Acute Headache Acute Migraine Acute Vomiting Acute
[2017-06-18] MEDS ORDERED: IBUPROFEN 200 MG TAB PO PRN (11:12)
--- NOTE | 2017-06-18 15:30 | PDINTPN ---
Rural Sociologist Progress Note Assessment/Plan: Assessment: * Aspiration pneumonia-likely pneumonitis for rather than pneumonia -CXR improved, afebrile and good oxygen saturations off antibiotics. * Congenital hydrocephalus-status post ABORIGINAL HOME SCHOOL LIAISON OFFICER shunt. Papilledema seen by Ophthalmology. -status post ICP monitor. Shunt externalized and draining PRN, some brief severe pressure spikes associated with HAs, but not as severe as HAs earlier. * Migraines-Mild, seem to be associated with pressure changes. * Owqsjhiiqd-tydv-rnuveemv staph. Likely contaminant. * Bradycardia-resolved Plan: Continue to monitor ICP, shunt output, and HAs. 06/18/17 15:20 Subjective: Feels better, HAs mild. Some transient loss of vision with standing up, but no other syncopal symptoms. Denies CP, cough. Objective: Vital Signs Temp Pulse Resp BP Pulse Ox 36.8 C 92 15 127/70 H 97 06/18/17 11:00 06/18/17 14:00 06/18/17 14:00 06/18/17 14:00 06/18/17 14:00 Laboratory Results 06/14/17 06:20 06/12/17 04:30 06/17/17 06/18/17 06/19/17 05:59 05:59 05:59 Intake Total 2050 1500 Output Total 1350 50 Balance 0 150 -50 PT 14.8 SEC (12.0-15.0) 06/13/17 04:15 INR 1.16 (0.83-1.16) 06/13/17 04:15 CXR 06/12: Improved alveolar infiltrates. Images reviewed. Physical Exam - Physical Exam General Appearance: alert, no apparent distress EENT: other (scalp dressed, ICP monitor in place.) Neck: normal inspection Respiratory: lungs clear Cardiac/Chest: regular rate, rhythm, No edema Abdomen: normal bowel sounds, non-tender, soft Skin: normal color, warm/dry Extremities: non-tender, normal inspection Neuro/Psych: alert, normal mood/affect, oriented x 3 ICD10 Worksheet Patient Problems: Problems Problem Status Onset Aspiration pneumonitis Acute Headache Acute Migraine Acute Vomiting Acute
[2017-06-18] MEDS: ENOXAPARIN 40 MG/0.4 ML SYR SC SCH (19:09)
[2017-06-18] MEDS: CYCLOBENZAPRINE 10 MG TAB PO PRN (20:19)
[2017-06-18] MEDS: VENLAFAXINE XR 75 MG CAP PO SCH (20:20)
[2017-06-19] MEDS: TOPIRAMATE 100 MG TAB PO SCH ×2 (07:55→21:10)
[2017-06-19] MEDS: GABAPENTIN 300 MG CAP PO SCH ×2 (07:55→21:10)
--- NOTE | 2017-06-19 07:58 | NEUSURGPN ---
Assessment/Plan: Assessment: 26 yo M with hx of congenital hydrocephalus with headaches with failed VPS Plan: -failed SENIOR QUALITATIVE RESEARCHER shunt-pt to get removal of shunt today with placement of new shunt -NPO -stealth CT ordered -pt consented with father, risks, need and benefits of surgery discussed-they wish to proceed -His SENIOR QUALITATIVE RESEARCHER shunt was externalized by Dr. Marti-we monitored his symptoms and his ICPs which show shunt failure -continue ICP monitoring at this time -continue PT/OT/ST -call with any questions or concerns -please call with any neuro changes Subjective: No new complaints or concerns. Pt with minimal FINK with externalized shunt. No cp/sob/abd or gu complaints. Objective: AAO x 3, PERRLA/EOMI no droop CN 2-12 grossly intact +lt touch 5/5 BUE/BLE = CDI Neuro Check Frequency: per routine Urinary Catheter in Place: No - Physician Discussed Patient with Dr.: Marti Patient Seen by Dr.: Marti Neurosurgery Physical Exam - Vitals, I&O, Labs I and O 06/18/17 06/19/17 06/20/17 05:59 05:59 05:59 Intake Total 1500 1000 Output Total 1350 1289 37 Balance 150 -289 -37 Intake: Oral (ml) 1500 1000 Output: Urine (ml) 1350 1000 Toilet 1350 1000 CSF Drainage Amount 289 37 Ventriculostomy 289 37 Vital Signs Temp Pulse Resp BP Pulse Ox 36.7 C 55 L 12 107/83 H 99 06/19/17 04:48 06/19/17 06:00 06/19/17 04:48 06/19/17 04:48 06/19/17 04:48 Laboratory Results 06/14/17 06:20 06/12/17 04:30 ICD10 Worksheet Patient Problems: Problems Problem Status Onset Aspiration pneumonitis Acute Headache Acute Migraine Acute Vomiting Acute
[2017-06-19] MEDS ORDERED: ceFAZolin 2 GM/DEXTROSE 100 ML IV ONE (08:00)
--- NOTE | 2017-06-19 08:55 | GPN ---
[f rep st] PROCEDURE NOTE DATE OF PROCEDURE: 06/18/2017 ASSISTANTS: None. PROCEDURE PERFORMED: Externalization of left ventriculoperitoneal shunt at the clavicle. PREOPERATIVE DIAGNOSES: 1. Shunted hydrocephalus. 2. Possible ventriculoperitoneal shunt malfunction. POSTOPERATIVE DIAGNOSES: 1. Shunted hydrocephalus. 2. Possible ventriculoperitoneal shunt malfunction. DESCRIPTION OF PROCEDURE: After informed consent was obtained from the patient, he was given 5 mg o f Versed and 50 mcg of fentanyl for conscious sedation. This was administered by an independent donna se observer, who monitored the vital signs and level of sedation throughout the procedure. The cath eter was localized over the left clavicle and 5 cc of 1% lidocaine with epinephrine was infiltrated into the skin for hemostasis. The clavicle was then prepped and draped in the normal sterile fashio n. A small, 8 mm, incision was made over the level of the catheter and the subcutaneous tissues wer e dissected until the catheter was found within a bed of scar tissue. The catheter was then pulled from the wound and we attempted to remove the distal portion from the abdomen. Given that the jonathan ter was in place for more than 20 years, this was quite adherent and I was able to pull about 10 cm from the abdomen, at which time, the catheter was quite adherent. When trying to pull further the c atheter, the catheter fractured with a retained portion in the abdomen. The superior portion of the catheter was then connected to a sterile drainage system. It was draining clear CSF without any si gn of obstruction. A few 2-0 Prolene sutures were then placed in the wound around the externalized catheter, and sterile dressings were placed. The patient tolerated this procedure well without any complications. Bleeding was minimal. /[id number]/MODL
--- NOTE | 2017-06-19 14:10 | PDINTPN ---
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 * Congenital hydrocephalus-status post OB NURSE shunt. Papilledema seen by Ophthalmology. -status post ICP monitor. Shunt externalized and draining PRN, HAs improved * Migraines-Mild, seem to be associated with pressure changes. * Ngphyyswpr-rmyb-slnrwfea staph. Likely contaminant. * Bradycardia-resolved Plan: Continue to monitor ICP, shunt output. Shunt revision today. 06/18/17 15:20 06/19/17 14:09 Subjective: Feels OK, FINK better with CSF drainage. Objective: Vital Signs Temp Pulse Resp BP Pulse Ox 36.5 C 84 18 119/74 98 06/19/17 08:00 06/19/17 08:00 06/19/17 08:00 06/19/17 08:00 06/19/17 08:00 Laboratory Results 06/14/17 06:20 06/12/17 04:30 06/18/17 06/19/17 06/20/17 05:59 05:59 05:59 Intake Total 1500 1000 Output Total 1350 1289 103 Balance 150 -289 -103 PT 14.8 SEC (12.0-15.0) 06/13/17 04:15 INR 1.16 (0.83-1.16) 06/13/17 04:15 Physical Exam - Physical Exam General Appearance: alert, no apparent distress EENT: other (cranium dressed) Neck: normal inspection Respiratory: lungs clear, normal breath sounds Cardiac/Chest: regular rate, rhythm, No edema Abdomen: normal bowel sounds, non-tender Skin: normal color, warm/dry Extremities: normal inspection Neuro/Psych: alert, normal mood/affect, oriented x 3 ICD10 Worksheet Patient Problems: Problems Problem Status Onset Aspiration pneumonitis Acute Headache Acute Migraine Acute Vomiting Acute
[2017-06-19] MEDS ORDERED: BACITRACIN 50,000 UNITS/10 ML SYR IRR ONE (15:54)
[2017-06-19] MEDS ORDERED: BACITRACIN ZINC 14.2 GM OINTTUBE TP ONE (15:54)
[2017-06-19] MEDS ORDERED: THROMBIN (BOVINE) 5,000 UNIT VIAL TP ONE (15:54)
[2017-06-19] MEDS ORDERED: BUPIVACAINE/EPI 0.25% 30 ML SDV ONE (15:54)
[2017-06-19] MEDS ORDERED: CHLORHEXIDINE GLUC HIBICLENS 118 ML BTL TP ONE (15:54)
--- NOTE | 2017-06-19 17:11 | PDANEPAE ---
ANE History of Present Illness evp global product leadership shunt malfunction ANE Past Medical History Past Medical History: hydrocephalus, pneumonitis - Pulmonary History Hx Oxygen in Use at Home: No Hx Sleep Apnea: No Sleep Apnea Screening Result - Last Documented: Negative - Endocrine History Hx Diabetes: No ANE Review of Systems - Exercise capacity METS (RN): 4 METS ANE Patient History - Allergies Allergies/Adverse Reactions: Penicillins Allergy (Verified 06/10/17 20:21) Hives sulfamethoxazole Allergy (Verified 06/10/17 20:21) Hives - Home Medications Home Medications: Cyclobenzaprine [Flexeril 10 MG (*)] 10 mg PO TID PRN 06/10/17 [Last Taken 06/07] Gabapentin [Neurontin 300 MG (*)] 600 mg PO BID 06/10/17 [Last Taken 06/10/17 08 :00] Ibuprofen [Motrin (*)] 800 mg PO TID PRN 06/10/17 [Last Taken 06/07/17] Loratadine [Claritin 10 mg] 10 mg PO DAILY PRN 06/10/17 [Last Taken 06/09/17] Promethazine HCl [Phenergan 25mg (*)] 12.5 mg PO Q6 PRN 06/10/17 [Last Taken ] Sumatriptan Succinate [Imitrex] 100 mg PO ONCE PRN MDD 200MG 06/10/17 [Last Taken 06/07/17] Topiramate [Topamax 100MG (*)] 100 mg PO BID 06/10/17 [Last Taken 06/10/17] Venlafaxine HCl [Venlafaxine HCl ER] 75 mg PO HS 06/10/17 [Last Taken 06/09/17] - NPO status NPO Since - Liquids (Date): 06/19/17 NPO Since - Liquids (Time): 08:00 NPO Since - Solids (Date): 06/19/17 NPO Since - Solids (Time): 08:00 - Smoking Hx Smoking Status: Never smoked ANE Labs/Vital Signs - Labs Result Diagrams: 06/14/17 06:20 06/12/17 04:30 - Vital Signs Blood Pressure: 108/67 Heart Rate: 101 Respiratory Rate: 18 O2 Sat (%): 98 Height: 177.8 cm Weight: 74.9 kg ANE Physical Exam - Airway Mallampati Score: Class 1 Mouth exam: normal dental/mouth exam - Pulmonary Pulmonary: no respiratory distress - Cardiovascular Cardiovascular: regular rate and rhythym ANE Anesthesia Plan Anesthesia Plan: general endotracheal anesthesia
[2017-06-19] MEDS ORDERED: fentaNYL 100 MCG/2 ML INJ ONE ×2 (17:12)
[2017-06-19] MEDS ORDERED: PROPOFOL 200 MG/20 ML VIAL ONE (17:12)
[2017-06-19] MEDS ORDERED: ROCURONIUM 50 MG/5 ML VIAL ONE (17:12)
[2017-06-19] MEDS ORDERED: CLINDAMYCIN 600 MG/DEXTROSE/50 ML BAG IV ONE (18:00)
[2017-06-19] MEDS ORDERED: HYDROmorphONE/DILAUDID 2 MG/ML INJ ONE (18:33)
[2017-06-19] MEDS ORDERED: fentaNYL 100 MCG/2 ML INJ IVP PRN (19:32)
[2017-06-19] MEDS ORDERED: NALOXONE HCL 0.4 MG/ML INJ IVP PRN (19:32)
--- NOTE | 2017-06-19 20:03 | POSTOPPROG ---
Post Op Note Date of Operation: 06/19/17 Surgeon: Yfn Marti Patrol Conductor: Claudia Martinez NP Anesthesiologist: Dr Ash Anesthesia: GET(General Endotracheal) Procedure: CLINICAL DATA MANAGEMENT MANAGER shunt revision, replacement of distal catheter and valve Inf/Abcess present in the surg proc area at time of surgery?: No Depth: Deep Incisional (Fascial) EBL: Minimal Total fluids administered: see anesthesis Complications: none Date of Surgery: 06/19/17 Post Op Day: 0 Assessment/Plan: 26 yr old with left CLINICAL DATA MANAGEMENT MANAGER shunt for congenital hydrocephalus, admitted for bitemporal headaches-S/P CLINICAL DATA MANAGEMENT MANAGER shunt distal catheter and valve revision Plan: -CT brain without contrast in AM -Shunt series xrays in AM -Will leave external ICP in for tonight, if stable through the night Dr Marti will dc tomorrow and possible discharge home -Continue to monitor ICP q1-2 hours -Call neurosurgery with sustained ICP >25 -Call neurosurgery with any questions/concerns Subjective: Patient waking up in ICU from anesthesia Objective: AAO x 3, PERRLA/EOMI no droop CN 2-12 grossly intact +lt touch 5/5 BUE/BLE = Incisions x3 CDI Appropriate Neuro Check Frequency Ordered: Yes
[2017-06-19] MEDS ORDERED: BISACODYL 10 MG SUPP PR PRN (20:04)
[2017-06-19] MEDS ORDERED: POLYETHYLENE GLYCOL 3350 17 GM PKT PO PRN (20:04)
[2017-06-19] MEDS ORDERED: MAGNESIUM HYDROXIDE 30 ML UDCUP PO PRN (20:04)
[2017-06-19] MEDS ORDERED: LACTULOSE 20 GM/30 ML UDCUP PO PRN (20:04)
[2017-06-19] MEDS ORDERED: METHOCARBAMOL 750 MG TAB PO PRN (20:11)
[2017-06-19] MEDS ORDERED: NS W/ 20 KCl/L 1,000 ML IV SCH (20:15)
[2017-06-19] MEDS: oxyCODONE IR 5 MG TAB PO PRN (21:10)
[2017-06-19] MEDS: VENLAFAXINE XR 75 MG CAP PO SCH (21:10)
[2017-06-19] MEDS: SENNOSIDES/DOCUSATE SODIUM TAB PO SCH (21:20)
[2017-06-19] MEDS: HYDROmorphONE/DILAUDID 1 MG/ML SYR IVP PRN (23:03)
[2017-06-19 23:15] VITALS: TEMP 97.5
--- NOTE | 2017-06-20 03:58 | GOP ---
[f rep st] OPERATIVE REPORT DATE OF OPERATION: 06/19/2017 SURGEON: Yfn Marti MD NEUROSURGEON: Yfn Marti M.D. STITCH BONDING MACHINE DRAWER IN: Claudia Martinez NP ANESTHESIA: General endotracheal. PREOPERATIVE DIAGNOSIS: Ventriculoperitoneal shunt malfunction. POSTOPERATIVE DIAGNOSIS: Ventriculoperitoneal shunt malfunction. PROCEDURE PERFORMED: Left frontal ventriculoperitoneal shunt revision. FINDINGS: Successful SAFETY PIN ASSEMBLING MACHINE OPERATOR shunt revision. ESTIMATED BLOOD LOSS: 5 cc. INDICATIONS: The patient is a 26-year-old man who has had a left frontal SAFETY PIN ASSEMBLING MACHINE OPERATOR shunt since change of address clerk which has only been revised 1 time in 1999 for infection. He presented to the hospital about 1 week ago with severe headaches , nausea and vomiting, and bradycardia. He was worked up from a medical standpoint, and nothing obvious was found. CT of the head showed slit ventricles and an eye exam revealed possible papilledema. I saw him and his headaches had resolved, and therefore, we elected to ICP monitoring. An ICP monitor was placed and the initial ICPs were ranging from -15 to 5. This was fairly clear that his shunt was over-draining from siphoning, so the shunt was then externalized at the clavicle and clamped to see if it could possibly be removed. At this point, his ICPs went high into the 40s. Therefore, he was scheduled for shunt revision today. DESCRIPTION OF PROCEDURE: After informed consent was obtained from the patient , the patient was brought to the operating room and was placed in a supine position on the operating table. A formal time-out was performed, identifying the patient by name, medical record number, and date of . Preoperative antibiotics were given. The endotracheal tube was placed and general endotracheal anesthesia was smoothly induced. The patient's head was turned slightly toward the right side on a donut headrest. The [employer] axiom unit was then registered to the scalp using known surface landmarks and was actually used to localize the [place] reservoir because it was very difficult to palpate given the bone growth around the valve. At this point, a linear incision was marked over the Rickham reservoir in the left frontal region. The previous incision behind the left ear was also marked and a patch over the abdomen was also marked. The externalized shunt catheter was tied off at the clavicle and the head and abdomen were prepped and draped in the normal sterile fashion. 5 cc of 0.25% Marcaine with epinephrine was infiltrated in the skin over the abdomen for analgesia and hemostasis. Next, the linear incision over the Rickham reservoir was made using a 10 blade. The subcutaneous tissues were dissected using monopolar electrocautery. The Rickham reservoir was identified. This was very incorporated into the bone of the skull and we then tracked this distally toward the valve. The valve was also quite incorporated into the bone of the skull and when we tried to remove it, it fractured. The postauricular incision was then made and the catheter was identified and freed at this level. The valve was then carefully removed from the bone and was able to be removed intact at that point. This was a Delta 1.5 valve which had been placed at a young age for him. At this point, the Rickham reservoir was tested and had excellent flow of CSF and was clamped off. At this point, I decided that I would not remove the Rickham reservoir and SAFETY PIN ASSEMBLING MACHINE OPERATOR shunt proximal catheter as it may be adherent and I did not want this to cause any intraventricular hemorrhage. The incision over the left upper quadrant of the abdomen was then made in a vertical fashion. The subcutaneous tissues were dissected using monopolar electrocautery. I was able to dissect more cephalad and the previous shunt catheter that had fractured when I externalized the catheter, was removed intact from the peritoneum and from the chest. At this point, the rectus fascia was opened and the rectus muscle was split and the posterior rectus sheath and peritoneum was opened. The omentum and bowel were visualized beneath. At this point, a Bactiseal distal shunt catheter was tunneled from the cranial incision via the postauricular incision to the abdomen. This was connected to a [employer] Certas Plus programmable valve with siphon guard anti siphon device incorporated into the valve. This was set preoperatively with a performance setting of 3 which would hopefully most closely represent the valve that he had in place. This was then secured to the distal catheter using a 2-0 silk tie. The valve was then primed and then connected to the Rickham reservoir , and again secured with a 2-0 silk tie. This was then placed into the subgaleal pocket and the catheter was pulled through to make sure that there were no kinks. After the catheter was pulled through, there was excellent flow from the distal shunt catheter and this was then placed into the peritoneal cavity. A pursestring stitch was placed around the peritoneum and the abdominal wound was then closed in layers. Prior to final closure, this was copiously irrigated using bacitracin irrigation and Dermabond was placed over the skin. The cranial wound was then copiously irrigated using bacitracin irrigation. The galea was closed using interrupted 3-0 Vicryl, and the skin was closed using a running 4-0 Monocryl vertical mattress stitch. The hair was washed. Sterile dressings were placed. The patient was awakened in the operating room where he was extubated, and was transferred to the PACU in stable condition. There were no operative complications. I was scrubbed and present for the entire procedure. FLUID AND URINE OUTPUT: Per the anesthesia record. COMPLICATIONS: There were no complications. DRAINS: There were no drains. IMPLANTS AND EQUIPMENT: Included: 1. [employer] Certas Plus programmable valve with siphon guard anti siphon device with a performance setting of 3. 2. Bactiseal distal shunt catheter. /[id number]/MODL MTDD
[2017-06-20 05:53] LABS: % IMMATURE GRANULYOCYTES 0.5 % (0.0-1.1); ABSOLUTE IMMATURE GRANULOCYTES 0.07 10^3/uL (0.00-0.10); ADD DIFF? NO; ADD MORPH? NO; ADD SCAN? NO; ATYPICAL LYMPHOCYTE FLAG 10 (0-99); FRAGMENT RBC FLAG 0 (0-99); HEMATOCRIT 40.4 % (40.0-51.0); HEMOGLOBIN 14.4 g/dL (13.7-17.5); LEFT SHIFT FLG 0 (0-99); LIPEMIA HEMOLYSIS FLAG 90 (0-99); MEAN CELL HEMOGLOBIN 32.7 pg (27.9-34.1); MEAN CELL HEMOGLOBIN CONCENTR. 35.6 g/dL (32.4-36.7); MEAN CELL VOLUME 91.6 fL (81.5-99.8); MEAN PLATELET VOLUME 8.7 fL (8.7-11.7); PLATELET CLUMPS FLAG 20 (0-99); PLATELET COUNT 217 10^3/uL (150-400); RED BLOOD CELL COUNT 4.41 10^6/uL (4.40-6.38); RED CELL DISTRIBUTION WIDTH 11.9 % (11.5-15.2)
[2017-06-20 06:03] LABS: ANION GAP 12 mEq/L (8-16); CALCIUM 9.4 mg/dL (8.5-10.4); CARBON DIOXIDE 20 mEq/l (22-31); CHLORIDE 104 mEq/L (97-110); CREATININE 0.9 mg/dL (0.7-1.3); GLOMERULAR FILTRATION RATE > 60; GLUCOSE 114 mg/dL (70-100); POTASSIUM 4.4 mEq/L (3.5-5.2); SODIUM 136 mEq/L (134-144)
[2017-06-20] MEDS: ACETAMINOPHEN 325 MG TAB PO PRN (08:59)
[2017-06-20] MEDS ORDERED: IBUPROFEN 200 MG TAB PO PRN (09:20)
[2017-06-20] MEDS: SENNOSIDES/DOCUSATE SODIUM TAB PO SCH (09:26)
[2017-06-20] MEDS: GABAPENTIN 300 MG CAP PO SCH (09:26)
[2017-06-20] MEDS: TOPIRAMATE 100 MG TAB PO SCH (09:26)
[2017-06-20] MEDS: ENOXAPARIN 40 MG/0.4 ML SYR SC SCH (09:27)
--- NOTE | 2017-06-20 10:00 | NEUSURGPN ---
Assessment/Plan: 26 yr old with left SLASHER shunt for congenital hydrocephalus, admitted for bitemporal headaches-S/P SLASHER shunt distal catheter and valve revision Plan: -CT brain without contrast looks good, right ventricle has enlarged from pre-op -Shunt series xrays still pending -Will pull ICP monitor around noon today -Can dc home later today with 2 week follow up with Dr. Marti -Call neurosurgery with sustained ICP >25 -Call neurosurgery with any questions/concerns Subjective: Patient has some discomfort from incisions but otherwise is doing well. Denies any increase in headaches. Objective: AAO x 3, PERRLA/EOMI no droop CN 2-12 grossly intact +lt touch 5/5 BUE/BLE = Incisions x3 CDI - Physician Discussed Patient with : Figueroa Patient Seen by : Figueroa Neurosurgery Physical Exam - Vitals, I&O, Labs I and O 06/19/17 06/20/17 06/21/17 05:59 05:59 05:59 Intake Total 1000 1224 Output Total 1289 203 Balance -289 1021 Weight 74.9 kg Intake: Oral (ml) 1000 250 IV Infused (ml) 974 NS W/ 20 KCl/L 1,000 ml @ 974 100 mls/hr IV CONT CHALO Rx#:[id number] Output: Urine (ml) 1000 Toilet 1000 CSF Drainage Amount 289 203 Ventriculostomy 289 203 Vital Signs Temp Pulse Resp BP Pulse Ox 36.4 C 72 18 115/64 94 06/19/17 20:04 06/20/17 06:00 06/20/17 06:00 06/20/17 06:00 06/20/17 06:00 Laboratory Results 06/20/17 05:45 06/20/17 05:45 ICD10 Worksheet Patient Problems: Problems Problem Status Onset Aspiration pneumonitis Acute Headache Acute Migraine Acute Vomiting Acute
[2017-06-20 11:35] VITALS: O2SAT 97
[2017-06-20 12:17] VITALS: BP 129/72; PULSE 89; RESP 19
== END 2017-06-20 16:35 | disposition home or self-care (01) | DRG 25 ==
LOC: F2N 21:06
PROVIDERS: ADMIT Internal Medicine; ATTEND Internal Medicine
DX: T85.09XA Other mechanical complication of ventricular intracranial (communicating) shunt, initial encounter (principal); J69.0 Pneumonitis due to inhalation of food and vomit; J96.00 Acute respiratory failure, unspecified whether with hypoxia or hypercapnia; Q03.9 Congenital hydrocephalus, unspecified; G43.909 Migraine, unspecified, not intractable, without status migrainosus; G44.229 Chronic tension-type headache, not intractable
CPT/HCPCS: 82947-QW; 96365; 97161-GP; 97165-GO; J0461; J0690; J1100; J1170; J1200; J1335; J1650; J1885; J2250; J2405; J2550; J2704; J3010; J3370

== ENCOUNTER → 2017-11-12 | Outpatient (CLI) | payer MEDICAID | LOC: FIMAGING 13:36 | PROVIDERS: ATTEND Physician Assistant | DX: Z86.79 Personal history of other diseases of the circulatory system (principal); Z98.2 Presence of cerebrospinal fluid drainage device ==

== ENCOUNTER 2018-11-14 08:06 | Inpatient (IN) | payer MEDICAID ==
[2018-11-14] MEDS: NALOXONE HCL 0.4 MG/ML INJ IVP PRN ×2 (08:16→08:40)
[2018-11-14] MEDS ORDERED: IOPAMIDOL (ISOVUE-370) 150 ML BTL IV ONE (08:25)
[2018-11-14] MEDS ORDERED: fentaNYL 100 MCG/2 ML INJ ONE (08:25)
[2018-11-14] MEDS ORDERED: LIDOCAINE 1% 300 MG/30 ML SDV ONE (08:25)
[2018-11-14] MEDS ORDERED: MIDAZOLAM 2 MG/2 ML VIAL ONE (08:25)
[2018-11-14] MEDS ORDERED: SODIUM BICARBONATE 50 MEQ/50 ML SYR IVP ONE (08:25)
[2018-11-14] MEDS ORDERED: EPINEPHrine 1 MG/ML INJ ONE (08:28)
[2018-11-14 08:30] LABS: PLATELET COUNT 233 10^3/uL (150-400)
[2018-11-14] MEDS ORDERED: NALOXONE HCL 2 MG in D5W 500 ML IV SCH (08:30)
[2018-11-14] MEDS ORDERED: NS 1,000 ML IV ONE (08:32)
[2018-11-14] MEDS ORDERED: BIVALIRUDIN 250 MG/5 ML VIAL IV ONE (08:32)
[2018-11-14 08:41] LABS: INR 1.51 (0.83-1.16); PROTIME(PATIENT) 18.4 SEC (12.0-15.0)
--- NOTE | 2018-11-14 08:48 | EDPHY ---
H & P Time Seen by Provider: 11/14/18 08:20 HPI/ROS: CHIEF COMPLAINT: Cardiac arrest Limitations: Unresponsive HISTORY OF PRESENT ILLNESS: 28-year-old male with hydrocephalus presents via helicopter in cardiac arrest. He originally presented this morning to [facility] in [place], [place] in acute severe respiratory distress. He was found unresponsive in his bedroom this morning by family with emesis in his mouth and on the floor. Oxygen saturation 60% on room air by EMS. He was transported to the [facility] Emergency Department, where he was diagnosed with bilateral aspiration pneumonia and acute hypoxic respiratory failure. He was given Rocephin, Zithromax and Flagyl IV. Concern for possible seizure, Keppra IV given. Initial lactate 3.8. He was given multiple albuterol nebulized breathing treatments, with improvement in his respiratory status. Decision to transport to [facility] via helicopter d/t limited resources in [place] and availability of the patient's neurosurgeon here. In route to [facility], the patient had a cardiac arrest at 0755, after an episode of severe coughing and hemoptysis. An LMA was placed and CPR initiated. Epinephrine 1 mg x2 given prior to arrival. He remained in PEA throughout the remainder of the transport. REVIEW OF SYSTEMS: Unable to obtain Source: EMS, EMS notes reviewed - Medical/Surgical History Hx Asthma: No Hx Chronic Respiratory Disease: No Hx Diabetes: No Hx Cardiac Disease: No Hx Renal Disease: No Hx Cirrhosis: No Hx Alcoholism: No Hx HIV/AIDS: No Hx Splenectomy or Spleen Trauma: No Other PMH: HH-gfirf-jlwxs hydrocephalus-migraines - Social History Smoking Status: Never smoked - Physical Exam Exam: General Appearance: Pale, unresponsive to painful stimuli Eyes: Pupils fixed and dilated, cornea have slightly glazed appearance ENT, Mouth: LMA in place, blood in mouth Neck: Normal inspection Respiratory: Bilateral rhonchi anteriorly, no spontaneous respirations Cardiovascular: No pulse Gastrointestinal: Abdomen is soft Neurological: Flaccid, unresponsive to painful stimuli Skin: Warm and dry Extremities: Pale, otherwise normal inspection Psychiatric: Unable to determine Allergies/Adverse Reactions: Penicillins Allergy (Verified 06/10/17 20:21) Hives sulfamethoxazole Allergy (Verified 06/10/17 20:21) Hives Home Medications: Medication Instructions Recorded Cyclobenzaprine [Flexeril 10 MG 10 mg PO TID PRN 06/10/17 (*)] Gabapentin [Neurontin 300 MG (*)] 600 mg PO BID 06/10/17 Ibuprofen [Motrin (*)] 800 mg PO TID PRN 06/10/17 Loratadine [Claritin 10 mg] 10 mg PO DAILY PRN 06/10/17 Promethazine HCl [Phenergan 25mg 12.5 mg PO Q6 PRN 06/10/17 (*)] Sumatriptan Succinate [Imitrex] 100 mg PO ONCE PRN MDD 200MG 06/10/17 Topiramate [Topamax 100MG (*)] 100 mg PO BID 06/10/17 Venlafaxine HCl [Venlafaxine HCl 75 mg PO HS 06/10/17 ER] Ibuprofen [Motrin (*)] 400 mg PO Q6 PRN #0 tab 06/20/17 Medical Decision Making - Diagnostics Imaging Results: Imaging Impressions Chest X-Ray 11/14/18 08:10 Impression: 1. Status post intubation. 2. Multifocal pneumonia, most densely consolidated in the right upper lobe. 3. Gastric air distention. 4. Stable remnant catheters as well as VOCATIONAL REHABILITATION COUNSELOR shunt tubing, as detailed above. Imaging: I viewed and interpreted images myself Procedures: Procedure: RSI Intubation Indication for the procedure was respiratory arrest. The patient was preoxygenated with 100% oxygen by LMA. No sedation required. The patient was orally endotracheally intubated under direct glidescope visualization with a 7.5 ETT. Tracheal intubation was confirmed with misting on the tube; equal breath sounds bilaterally immediately after intubation; appropriate color change with [place] [employer] CO2 detector; and appropriate capnography waveform. Oxygen saturation after intubation is 86. Chest X-ray shows ETT is high. The procedure was performed by myself. ED Course/Re-evaluation: This patient presents in cardiac arrest after diagnosis of bilateral pneumonia. On patient arrival, CPR is in progress. CPR was held; he had no pulse and no cardiac movement on ultrasound. CPR was continued. I orally intubated him with a 7.5 endotracheal tube. Copious suctioning after intubation because of blood in airway, with improvement in oxygen saturation to the mid 80s. Post intubation chest x-ray reveals bilateral infiltrates and ET tube a little high. The ET tube was lowered by RT. Epinephrine 1 mg IV and Narcan 2 mg IV given. After this, he regained pulses. See the ED nursing record for full resuscitation record. Intermittently, pt in cardiac arrest, regained pulses after IV epi boluses. An epinephrine drip and narcan drip were initiated. Bedside ECHO by studio technician when pt had pulses: minimal LV fxn, approx 5%. Dr. Gerber was present throughout the resuscitation and decided to take the pt to the dairy lab technician for cath and for central line placement. HACA protocol initiated with ice bag placement and cool IVF. The patient remained unstable throughout his ED stay. No family present in ED; family will be contacted by loss control manager. The hospitalist service was consulted and will admit the pt to the ICU. I spent a total of 50 minutes of critical care time in obtaining history, performing a physical exam, bedside monitoring of interventions, collecting and interpreting tests and discussion with consultants but not including time spent performing procedures. Prior to this patient's arrival, I reviewed the ED record from [place]. Differential Diagnosis: includes though not limited to (and no particular order): acute dysrhythmia, septic shock, airway obstruction, hypoglycemia, CVA, acute coronary syndrome, intoxicants - Data Points Laboratory Results: Laboratory Results 11/14/18 08:20 11/14/18 08:20 11/14/18 11/14/18 11/14/18 08:20 08:20 08:20 WBC 30.77 10^3/uL H 10^3/uL (3.80-9.50) RBC 5.19 10^6/uL 10^6/uL (4.40-6.38) Hgb 17.5 g/dL g/dL (13.7-17.5) POC Hgb Hct 51.9 % H % (40.0-51.0) POC Hct MCV 100.0 fL H fL (81.5-99.8) MCH 33.7 pg pg (27.9-34.1) MCHC 33.7 g/dL g/dL (32.4-36.7) RDW 12.7 % % (11.5-15.2) Plt Count 233 10^3/uL 10^3/uL (150-400) MPV 9.1 fL fL (8.7-11.7) Neut % (Auto) Pending Lymph % (Auto) Pending Wetzel % (Auto) Pending Eos % (Auto) Pending Baso % (Auto) Pending Nucleat RBC Rel Count Pending Absolute Neuts (auto) Pending Absolute Lymphs (auto) Pending Absolute Monos (auto) Pending Absolute Eos (auto) Pending Absolute Basos (auto) Pending Absolute Nucleated RBC Pending Immature Gran % Pending Immature Gran # Pending Platelet Estimate Pending PT 18.4 SEC H SEC (12.0-15.0) INR 1.51 H (0.83-1.16) APTT 45.7 SEC H SEC (23.0-38.0) POC Sodium Sodium 131 mEq/L L mEq/L (135-145) POC Potassium Potassium 3.7 mEq/L mEq/L (3.5-5.2) POC Chloride Chloride 100 mEq/L mEq/L (97-110) Carbon Dioxide 12 mEq/l L mEq/l (22-31) Anion Gap 19 mEq/L H mEq/L (6-14) POC BUN BUN 15 mg/dL mg/dL (7-23) Creatinine 1.0 mg/dL mg/dL (0.7-1.3) POC Creatinine Estimated GFR > 60 Glucose 198 mg/dL H mg/dL (70-100) POC Glucose Calcium 8.5 mg/dL mg/dL (8.5-10.4) Total Bilirubin 0.9 mg/dL mg/dL (0.1-1.4) AST 76 IU/L H IU/L (17-59) ALT 65 IU/L IU/L (21-72) Alkaline Phosphatase 87 IU/L IU/L (38-126) Troponin I 3.360 ng/mL H ng/mL (0.000-0.034) Total Protein 6.3 g/dL g/dL (6.3-8.2) Albumin 3.5 g/dL g/dL (3.5-5.0) 11/14/18 08:19 WBC RBC Hgb POC Hgb 18.0 gm/dL H gm/dL (13.7-17.5) Hct POC Hct 53 % H % (40-51) MCV MCH MCHC RDW Plt Count MPV Neut % (Auto) Lymph % (Auto) Wetzel % (Auto) Eos % (Auto) Baso % (Auto) Nucleat RBC Rel Count Absolute Neuts (auto) Absolute Lymphs (auto) Absolute Monos (auto) Absolute Eos (auto) Absolute Basos (auto) Absolute Nucleated RBC Immature Gran % Immature Gran # Platelet Estimate PT INR APTT POC Sodium 134 mEq/L L mEq/L (135-145) Sodium POC Potassium 3.4 mEq/L mEq/L (3.3-5.0) Potassium POC Chloride 99 mEq/L mEq/L (97-110) Chloride Carbon Dioxide Anion Gap POC BUN 18 mg/dL mg/dL (7-23) BUN Creatinine POC Creatinine 1.1 mg/dL mg/dL (0.7-1.3) Estimated GFR Glucose POC Glucose 198 mg/dL H mg/dL (70-100) Calcium Total Bilirubin AST ALT Alkaline Phosphatase Troponin I Total Protein Albumin Point of Care Test Results: Chemistry 11/14/18 08:19 POC Sodium 134 mEq/L L mEq/L (135-145) POC Potassium 3.4 mEq/L mEq/L (3.3-5.0) POC Chloride 99 mEq/L mEq/L (97-110) POC BUN 18 mg/dL mg/dL (7-23) POC Creatinine 1.1 mg/dL mg/dL (0.7-1.3) POC Glucose 198 mg/dL H mg/dL (70-100) ISTAT H&H 11/14/18 08:19 POC Hgb 18.0 gm/dL H gm/dL (13.7-17.5) POC Hct 53 % H % (40-51) Departure - Departure Disposition: [facility] Acute Clinical Impression: Cardiac arrest due to respiratory disorder Pneumonia Qualifiers: Pneumonia type: due to unspecified organism Laterality: bilateral Lung location : unspecified part of lung Qualified Code(s): J18.9 - Pneumonia, unspecified organism Condition: Critical
[2018-11-14] MEDS ORDERED: SUCCINYLCHOLINE CHLORIDE 200 MG/10 ML SYR IVP ONE (09:07)
[2018-11-14] MEDS ORDERED: ETOMIDATE 40 MG/20 ML INJ ONE (09:07)
--- NOTE | 2018-11-14 09:08 | PDCARCONS ---
Cardiology Consult Reason for Consult: Arrest - unspecified etiology Chief Complaint: Non responsive Requesting Physician: ER physicians History of Present Illness: Patient is a 28 y/o male with history of ORTHOTIC FITTER shunt (congenital hydrocephalus), bicuspid aortic valve, and sinus bradycardia (seen by cardiology in 2017 for the latter two diagnoses), who presented to [facility] via air transport given history of ORTHOTIC FITTER shunt placement in the past, with coughing and abrupt loss of consciousness. PEA was noted in flight, and high quality CPR was started. Upon arrival to the ER, high quality CPR was continued, and ACLS protocols were run. Epi and Bicarb were given in the ER, and initial bedside echo with cardiac standstill noted. Narcan was given, and shortly thereafter, bedside echo revealed return of cardiac function (EF estimated to be 10%). Peripheral pulses and blood pressure were noted simultaneously with the noted echo findings. HACA protocol was started in the ER. Narcan drip was started prior to transfer to the cardiac laboratory inspector. Pupils were noted to be fixed and dilated prior to transport to the cardiac laboratory inspector. Patient was brought to the cardiac laboratory inspector as a salvage case for assessment of coronary anatomy, and invasive systolic function assessment. Review of systems was not obtained given (a) unresponsive patient, (b) intubated , (c) pupils fixed and dilated. History Information - Allergies/Home Medication List Allergies/Adverse Reactions: Penicillins Allergy (Verified 06/10/17 20:21) Hives sulfamethoxazole Allergy (Verified 06/10/17 20:21) Hives Home Medications: Cyclobenzaprine [Flexeril 10 MG (*)] 10 mg PO TID PRN 06/10/17 [Last Taken 06/07] Gabapentin [Neurontin 300 MG (*)] 600 mg PO BID 06/10/17 [Last Taken 06/10/17 08 :00] Ibuprofen [Motrin (*)] 800 mg PO TID PRN 06/10/17 [Last Taken 06/07/17] Loratadine [Claritin 10 mg] 10 mg PO DAILY PRN 06/10/17 [Last Taken 06/09/17] Promethazine HCl [Phenergan 25mg (*)] 12.5 mg PO Q6 PRN 06/10/17 [Last Taken ] Sumatriptan Succinate [Imitrex] 100 mg PO ONCE PRN MDD 200MG 06/10/17 [Last Taken 06/07/17] Topiramate [Topamax 100MG (*)] 100 mg PO BID 06/10/17 [Last Taken 06/10/17] Venlafaxine HCl [Venlafaxine HCl ER] 75 mg PO HS 06/10/17 [Last Taken 06/09/17] Past Medical History: - Past Medical History Additional medical history: Hydrocephalus - Surgical History Additional surgical history: ORTHOTIC FITTER shunt - Family History Positive for: non-pertinent - Social History Smoking Status: Never smoked Tobacco Use: Other (unknown) Alcohol Use: Other (unknown) Drug Use: Other (unknown) Cardiac History - Cardiac History Timing/Duration: Minutes Severity: severe Severity Scale: 10 Location: other Activities at Onset: rest Modifying Factors: improves with: other (High quality CPR) Associated Symptoms: cough, malaise, nausea/vomiting, shortness of breath Physical Exam Physical Exam: Constitutional: other (Unresponsive) Eyes: other (pupils were fixed and dilated) Ears, Nose, Mouth, Throat: moist mucous membranes Cardiovascular: tachycardia Peripheral Pulses: 1+: dorsalis-pedis (R), dorsalis-pedis (L) Respiratory: respiratory distress Gastrointestinal: distension Skin: mottled Neurologic: other (obtunded) Psychiatric: other (obtunded) Lab and Imaging 11/14/18 08:20 11/14/18 08:20 WBC 30.77 10^3/uL (3.80-9.50) H 11/14/18 08:20 RBC 5.19 10^6/uL (4.40-6.38) 11/14/18 08:20 Hgb 17.5 g/dL (13.7-17.5) 11/14/18 08:20 POC Hgb 18.0 gm/dL (13.7-17.5) H 11/14/18 08:19 Hct 51.9 % (40.0-51.0) H 11/14/18 08:20 POC Hct 53 % (40-51) H 11/14/18 08:19 MCV 100.0 fL (81.5-99.8) H 11/14/18 08:20 MCH 33.7 pg (27.9-34.1) 11/14/18 08:20 MCHC 33.7 g/dL (32.4-36.7) 11/14/18 08:20 RDW 12.7 % (11.5-15.2) 11/14/18 08:20 Plt Count 233 10^3/uL (150-400) 11/14/18 08:20 MPV 9.1 fL (8.7-11.7) 11/14/18 08:20 PT 18.4 SEC (12.0-15.0) H 11/14/18 08:20 INR 1.51 (0.83-1.16) H 11/14/18 08:20 APTT 45.7 SEC (23.0-38.0) H 11/14/18 08:20 POC Sodium 134 mEq/L (135-145) L 11/14/18 08:19 Sodium 131 mEq/L (135-145) L 11/14/18 08:20 POC Potassium 3.4 mEq/L (3.3-5.0) 11/14/18 08:19 Potassium 3.7 mEq/L (3.5-5.2) 11/14/18 08:20 POC Chloride 99 mEq/L (97-110) 11/14/18 08:19 Chloride 100 mEq/L (97-110) 11/14/18 08:20 Carbon Dioxide 12 mEq/l (22-31) L 11/14/18 08:20 Anion Gap 19 mEq/L (6-14) H 11/14/18 08:20 POC BUN 18 mg/dL (7-23) 11/14/18 08:19 BUN 15 mg/dL (7-23) 11/14/18 08:20 Creatinine 1.0 mg/dL (0.7-1.3) 11/14/18 08:20 POC Creatinine 1.1 mg/dL (0.7-1.3) 11/14/18 08:19 Estimated GFR > 60 11/14/18 08:20 Glucose 198 mg/dL (70-100) H 11/14/18 08:20 POC Glucose 198 mg/dL (70-100) H 11/14/18 08:19 Calcium 8.5 mg/dL (8.5-10.4) 11/14/18 08:20 Total Bilirubin 0.9 mg/dL (0.1-1.4) 11/14/18 08:20 AST 76 IU/L (17-59) H 11/14/18 08:20 ALT 65 IU/L (21-72) 11/14/18 08:20 Alkaline Phosphatase 87 IU/L (38-126) 11/14/18 08:20 Troponin I 3.360 ng/mL (0.000-0.034) H 11/14/18 08:20 Total Protein 6.3 g/dL (6.3-8.2) 11/14/18 08:20 Albumin 3.5 g/dL (3.5-5.0) 11/14/18 08:20 Visualized and Interpreted Chest x-ray results: Yes Chest X-ray Interpretation: effusion EKG additional interpertation: Telemetry with sinus tachycardia noted. Telemetry: sinus tachycardia Echocardiogram: initial cardiac echo with cardiac standstill subsequent bedside echo with LVEF of 10% A/P Assessment: Patient is a 28 y/o male with bicuspid aortic valve, with congenital hydrocephalus (ORTHOTIC FITTER shunt) with respiratory distress. This quickly evolved to involve PEA. High quality CPR was started in flight, and continued into the ER at [facility]. Bedside echocardiography with initial findings of cardiac standstill. Narcan was dosed, and systolic function with palpable pulses were noted. Given patient age and reduction in systolic function, we opted to take the patient to the cardiac laboratory inspector for salvage angiography. No critical CAD was noted, and severe reduction in LVEF continued to be noted. Neurologic status remained severely impaired. HACA proctol is running. Interaortic balloon pump was placed for haemodynamic support. Plan: Patient to have CT head prior to transfer to ICU for continued haemodynamic monitoring. Would refrain from heparin given (a) protracted code and (b) ongoing blood from ETT Pulmonary/critical care will assume care of patient. Would consider Neurosurgery input given history of ORTHOTIC FITTER shunt
[2018-11-14] MEDS ORDERED: EPINEPHrine 1 MG/10 ML SYR IVP ONE ×3 (09:17→09:18)
[2018-11-14] MEDS ORDERED: SODIUM BICARBONATE 50 MEQ/50 ML SYR ONE ×2 (09:24→11:59)
[2018-11-14] MEDS ORDERED: ALBUMIN 5% 500 ML IV ONE ×2 (11:22→12:00)
--- NOTE | 2018-11-14 11:30 | GCON ---
NEUROSURGICAL CONSULTATION DATE OF CONSULTATION: 11/14/2018 CHIEF COMPLAINT: Altered mental status. HISTORY OF PRESENT ILLNESS: This is a 28-year-old male with an indwelling PLUMBER ASSISTANT shunt, who was transfer red via air from [place]. He arrested apparently en route and got rounds of epinephrine, no atropine, and CPR, and arrived in the emergency department where he was taken directly to the label printer. The c ath was clean. A repeat CT of the head is negative. However, the shunt is hard as a rock. The jakub ent is a GCS of 3 with pupils 6 mm, fixed and dilated. They have been fixed and dilated since [facility]. CT of the head is stable compared to November of 2016. White count is 30.77, hemoglobin 17.5, hem atocrit 51.9. Platelets are 233. Sodium is 131, potassium 3.7, chloride 100, CO2 12, BUN 15, creati nine 1, glucose 198. PT 18.4, INR 1.51, PTT 45.7. PCO2 is 68. PO2 is 84. IMPRESSION AND PLAN: This is a 28-year-old male with acute shunt malfunction, who is now Panchito com a scale of 3, and an emergent EVD will be placed on the right side to evaluate intracranial pressure and likely drain. This presentation is significantly concerning for poor overall outcome in this [facility] ient. No family is at bedside, so this is a 2-physician consent. This was discussed with my partner on-call, Dr. Marti, as a 2-physician consent, and the patient will have an EVD placed. We will keep the drain open at 0 and allow it to drain. /[id number]/MODL
--- NOTE | 2018-11-14 11:56 | GOP ---
DATE OF OPERATION: 11/14/2018 SURGEON: Maria Victoria English DO NEUROSURGEON: Maria Victoria English DO CAROUSEL ATTENDANT: None. PREOPERATIVE DIAGNOSIS: Shunt malfunction. POSTOPERATIVE DIAGNOSIS: 1. Shunt malfunction. 2. Elevated intracranial hypertension and herniation. PROCEDURE PERFORMED: Right-sided external ventricular drain placement and ventriculostomy. FINDINGS: ESTIMATED BLOOD LOSS: Ten. INDICATIONS: This is a 28-year-old male with an acute shunt malfunction, who had an emergent EVD cresencio gregg at bedside. DESCRIPTION OF PROCEDURE: A 2-physician consent was performed with myself and Dr. Marti and the hair was clipped with the OR clippers. He was prepped in the usual sterile fashion. Jona's point was measured 10 cm posterior to the glabella and 3.5 cm lateral to the midline, and an incision was made with a 10 blade. A twist drill ventriculostomy was performed. The dura was punctured with a trocar. The drain was placed at 8 cm at the skin with immediate egress of high-pressure CSF. We tunneled o ut laterally and we still had drainage. We attached the Tamayo bag after approximately 20 cc of drai nage and the ICP was greater than 32 at that point in time. We will leave the drain open at 0. The drain was sutured down and then stapled in a Strain-Relief loop. The skin was closed with kurtis. The wound was dressed. There was no change in the pupillary size or the clinical exam. FLUIDS: Not recorded. DRAINS: 1 EVD in the right ventricle to Tamayo bag. /[id number]/MODL
[2018-11-14] MEDS ORDERED: VASOPRESSIN 25 UNIT in NS 250 ML IV SCH (12:00)
[2018-11-14] MEDS ORDERED: SODIUM BICARBONATE 50 MEQ/50 ML SYR IV ONE (12:15)
[2018-11-14] MEDS: PETROLAT,WHT/MIN OIL/SOD CHL 3.5 GM OPHT.OINT EACHEYE SCH ×4 (12:19→23:43)
--- NOTE | 2018-11-14 12:51 | CPIP ---
DATE OF PROCEDURE: 11/14/2018 INDICATIONS FOR PROCEDURE: Cardiac arrest. PROCEDURE: 1. Nonselective procedure. 2. An 8-Malaysian intra-aortic balloon pump placed through left common femoral artery. 3. A 6-Malaysian sheath, right common femoral artery. 4. Hypothermia after cardiac arrest (HACA) catheter in right common femoral vein. 5. Bilateral selective coronary angiography. 6. Left heart catheterization. 7. Left angiogram. HISTORY: Briefly, this is a 28-year-old male who was found down in the field with PEA cardiac arrest . The patient has a history of QUALITY CONTROL TECH shunt, but no cardiac history. In the emergency room, the patient was being actively coded in a PEA arrest. The patient did have return of blood pressure and pulse. The patient was taken emergently to the cardiac catheterization lab for further evaluation. The pat ient was brought up to the lab. The groins were prepared in sterile fashion. The patient, of note, had been intubated and had had CPR continuously performed until the point of being into the open hearth furnace laborer. A balloon pump was placed via the left common femoral artery, and placed a 6-Malaysian lake th placed right common femoral artery. A HACA catheter was placed in right common femoral vein. Thr ough the 6-Malaysian sheath, a JL4 catheter was advanced to the left coronary artery. Images of the lef t coronary artery: Normal left coronary artery circulation with normal left circumflex and LAD. Med ium-sized diagonal artery coming off proximally, which was healthy and free of disease. After these images were obtained, the JL4 catheter was removed. A JR4 catheter was advanced to the right coronar y artery. Images of the right coronary artery revealed normal os, prox, distal RCA, normal RPD and R PLS. After this was performed, the JR4 catheter was removed. The pigtail catheter was advanced into the left ventricle. EDP is 30 mmHg. The left ventriculogram in the BRENNER projection showed an EF of 10% to 15% with severe global LV dysfunction. No pullback gradient between the LV and the aorta. Pi gtail catheter was removed over an 0.035 wire. The patient tolerated the procedure well with no comp lications. IMPRESSION: 1. Placement of hypothermia after cardiac arrest (HACA) catheter for cooling. 2. Placement of balloon pump for blood pressure support. 3. Normal coronary arteries. 4. Severely reduced ejection fraction. PLAN: The patient has a nonischemic etiology for his underlying LV dysfunction. The patient will be taken to CT scan of his head next, given his history of QUALITY CONTROL TECH shunt. The patient will remain on the ve ntilator with HACA cooling as well as balloon pump support. The patient is currently in critical con dition. /[id number]/MODL
[2018-11-14] MEDS ORDERED: MANNITOL 20% 500 ML IV ONE (13:30)
--- NOTE | 2018-11-14 13:37 | PDMN ---
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
[2018-11-14] MEDS ORDERED: PETROLAT,WHT/MIN OIL/SOD CHL 3.5 GM OPHT.OINT EACHEYE SCH (14:00)
--- NOTE | 2018-11-14 14:05 | ECHO ---
[email or web address] [id number] Main: [phone] Fax: Transthoracic Echocardiogram Name: JOSE FRANCISCO LAWLER MR#: [id number] Study Date: 11/14/2018 Study Time: 08:18 AM Date of : 1990 Age: 28 year(s) Height: ( ) Weight: ( ) BSA: Gender: Male Examination: Limited Echo Indication: Cardiac arrest Image Quality: Contrast: Requested by: Stephania Rothman BP: / Heart Rate: Rhythm: Indication: Cardiac arrest Procedure Staff Boat Assembler: Bipin Hoffmann RDCS Reading Physician: Deng Gerber MD Requesting Provider: Conclusions: This is a limited echo to evaluate LV function during a cardiac arrest/ CPR. There is severe LV hypokinesis with a overall ejection fraction of 10% There is no pericardial effusion. . Measurements: Chambers Valvular Assessment AV/MV Valvular Assessment TV/PV Normal Normal Normal Name Value Range Name Value Range Name Value Range Continued Measurements: Findings: Exam Comments: This is a limited echo to evaluate LV function during a cardiac arrest/ CPR. There is severe LV hypokinesis with a overall ejection fraction of 10% There is no pericardial effusion. . (No Signature Object) Patient: JOSE FRANCISCO LAWLER Study Date: 11/14/2018 Page 1 of 1 08:18 AM [id number]
[2018-11-14] MEDS ORDERED: PROPOFOL/EMULSION 1,000 MG/100 ML BOTTLE IV ONE (14:36)
[2018-11-14] MEDS ORDERED: PROPOFOL/EMULSION 100 ML IV SCH (15:00)
[2018-11-14] MEDS: SODIUM Cl 3% 500 ML IV SCH (15:07)
[2018-11-14] MEDS ORDERED: ACETAMINOPHEN 325 MG SUPP PR PRN (15:50)
[2018-11-14] MEDS: EPINEPHrine 8 MG in NS 250 ML IV SCH ×3 (15:51→23:00)
[2018-11-14] MEDS ORDERED: ACETAMINOPHEN 650 MG SUPP PR PRN (16:01)
--- NOTE | 2018-11-14 16:23 | PDGENHP ---
History and Physical - Chief Complaint cardiac arrest - History of Present Illness 28 yo M with PMH that includes VAMP SEAMER shunt for congenital hydrocephalus as well as chronic migraine and bicuspid aortic valve and sinus bradycardia presenting by air ambulance from [place] after being found by family in severe respiratory distress with what was thought to be aspiration pna. He presented to outside hospital with an o2 sat of 60% and after some stabilization with antibiotics, nebulizer and keppra given concerns for seizure while in that ER. Apparently decision was made to transfer patient by air ambulance here given that the local hospital had limited resources and patients neurosurgeon was here at [facility]. En route in the ambulance, patient was noted to start coughing followed by LOC and PEA arrest. CPR was begun on transport and continued in ER, patient was intubated. Bedside echo in ER showed an estimated EF of 10%, he was noted to have fixed and dilated pupils. He was taken to cardiac cath at that time where there was confirmation of normal coronary arteries, very low EF, balloon pump was placed as well as cooling catheter for potential HACA protocol. He was sent to CT scan en route to ICU for stabilization. CT confirmed shunt malfunction and elevated ICP and patient was taken emergently for ventricular drain placement with f/u head CT confirming cerebral edema and brain herniation. Family arrived to bedside and discussion had with Dr. Gavin and Dr. English. History Information - Allergies/Home Medication List Allergies/Adverse Reactions: Penicillins Allergy (Verified 06/10/17 20:21) Hives sulfamethoxazole Allergy (Verified 06/10/17 20:21) Hives Home Medications: Cyclobenzaprine [Flexeril 10 MG (*)] 10 mg PO TID PRN 06/10/17 [Last Taken 06/07] Gabapentin [Neurontin 300 MG (*)] 600 mg PO BID 06/10/17 [Last Taken 06/10/17 08 :00] Ibuprofen [Motrin (*)] 800 mg PO TID PRN 06/10/17 [Last Taken 06/07/17] Loratadine [Claritin 10 mg] 10 mg PO DAILY PRN 06/10/17 [Last Taken 06/09/17] Promethazine HCl [Phenergan 25mg (*)] 12.5 mg PO Q6 PRN 06/10/17 [Last Taken ] Sumatriptan Succinate [Imitrex] 100 mg PO ONCE PRN MDD 200MG 06/10/17 [Last Taken 06/07/17] Topiramate [Topamax 100MG (*)] 100 mg PO BID 06/10/17 [Last Taken 06/10/17] Venlafaxine HCl [Venlafaxine HCl ER] 75 mg PO HS 06/10/17 [Last Taken 06/09/17] I have personally reviewed and updated: family history, medical history, social history, surgical history - Past Medical History migraines Additional medical history: congenital Hydrocephalus - Surgical History Additional surgical history: VAMP SEAMER shunt - Family History Positive for: non-pertinent - Social History Smoking Status: Never smoked Tobacco Use: Other (unknown) Alcohol Use: Other (unknown) Drug Use: Other (unknown) Review of Systems Review of Systems: unobtainable 2/2 patients mental status Physical Exam Physical Exam: Temp Pulse Resp BP Pulse Ox 37.9 C 143 H 35 H 119/71 96 11/14/18 15:00 11/14/18 15:35 11/14/18 15:35 11/14/18 15:00 11/14/18 15:35 FIO2 (%) 100 Constitutional: other (intubated, sedated) Eyes: other (pupils fixed, dilated) Ears, Nose, Mouth, Throat: other (ett in place) Cardiovascular: tachycardia, No edema Respiratory: bronchial breath sounds, other (intubated) Gastrointestinal: normoactive bowel sounds, No ascites Genitourinary: brown in urethra Skin: warm, normal color Musculoskeletal: other (unable to assess), No asymmetric calves Neurologic: other (pupils fixed and dilated, no spontaneous movement) Psychiatric: other (unable to assess due to above) Lab Data & Imaging Review 11/14/18 08:20 11/14/18 14:45 WBC 30.77 10^3/uL (3.80-9.50) H 11/14/18 08:20 RBC 5.19 10^6/uL (4.40-6.38) 11/14/18 08:20 Hgb 17.5 g/dL (13.7-17.5) 11/14/18 08:20 POC Hgb 18.0 gm/dL (13.7-17.5) H 11/14/18 08:19 Hct 51.9 % (40.0-51.0) H 11/14/18 08:20 POC Hct 53 % (40-51) H 11/14/18 08:19 MCV 100.0 fL (81.5-99.8) H 11/14/18 08:20 MCH 33.7 pg (27.9-34.1) 11/14/18 08:20 MCHC 33.7 g/dL (32.4-36.7) 11/14/18 08:20 RDW 12.7 % (11.5-15.2) 11/14/18 08:20 Plt Count 233 10^3/uL (150-400) 11/14/18 08:20 MPV 9.1 fL (8.7-11.7) 11/14/18 08:20 Neut % (Auto) Not Reported 11/14/18 08:20 Lymph % (Auto) Not Reported 11/14/18 08:20 Lyman % (Auto) Not Reported 11/14/18 08:20 Eos % (Auto) Not Reported 11/14/18 08:20 Baso % (Auto) Not Reported 11/14/18 08:20 Nucleat RBC Rel Count Not Reported 11/14/18 08:20 Absolute Neuts (auto) Not Reported 11/14/18 08:20 Absolute Lymphs (auto) Not Reported 11/14/18 08:20 Absolute Monos (auto) Not Reported 11/14/18 08:20 Absolute Eos (auto) Not Reported 11/14/18 08:20 Absolute Basos (auto) Not Reported 11/14/18 08:20 Absolute Nucleated RBC Not Reported 11/14/18 08:20 Immature Gran % Not Reported 11/14/18 08:20 Seg Neutrophils % 65.7 % 11/14/18 08:20 Band Neutrophils % 10.1 % 11/14/18 08:20 Lymphocytes % 21.2 % 11/14/18 08:20 Monocytes % 3.0 % 11/14/18 08:20 Eosinophils % 0.0 % 11/14/18 08:20 Basophils % 0.0 % 11/14/18 08:20 Metamyelocytes % 0.0 % 11/14/18 08:20 Myelocytes % 0.0 % 11/14/18 08:20 Promyelocytes % 0.0 % 11/14/18 08:20 Blast Cells % 0.0 % 11/14/18 08:20 Immature Gran # Not Reported 11/14/18 08:20 Absolute Seg Neuts 20.22 10^3/uL (1.70-6.50) H 11/14/18 08:20 Absolute Band Neuts 3.11 10^3/uL (0.00-0.70) H 11/14/18 08:20 Absolute Lymphocytes 6.52 10^3/uL (1.00-3.00) H 11/14/18 08:20 Absolute Monocytes 0.92 10^3/uL (0.30-0.80) H 11/14/18 08:20 Absolute Eosinophils 0.00 10^3/uL (0.03-0.40) L 11/14/18 08:20 Absolute Basophils 0.00 10^3/uL (0.02-0.10) L 11/14/18 08:20 Absolute Metamyelocyte 0.00 10^3/mL (0.00-0.00) 11/14/18 08:20 Absolute Myelocytes 0.00 10^3/mL (0.00-0.00) 11/14/18 08:20 Absolute Promyelocytes 0.00 10^3/uL (0.00-0.00) 11/14/18 08:20 Absolute Plasma Cells 0.00 10^3/uL (0.00-0.00) 11/14/18 08:20 Nucleated RBCs 0 /100 WBC (0-0) 11/14/18 08:20 RBC/WBC/PLT Morphology NORMAL (NORMAL) 11/14/18 08:20 Absolute Blast Cells 0.00 10^3/uL (0.00-0.00) 11/14/18 08:20 Plasma Cells % 0.0 % 11/14/18 08:20 Platelet Estimate ADEQUATE (ADEQ) 11/14/18 08:20 PT 18.4 SEC (12.0-15.0) H 11/14/18 08:20 INR 1.51 (0.83-1.16) H 11/14/18 08:20 APTT 45.7 SEC (23.0-38.0) H 11/14/18 08:20 Puncture Site ARTERIAL LINE 11/14/18 14:33 Patient Temperature 37.4 DEGREES 11/14/18 14:33 pCO2 41 mmHg (34-38) H 11/14/18 14:33 pO2 71 mmHg (65-75) 11/14/18 14:33 Total CO2 15 mEq/L (23-27) L 11/14/18 14:33 ABG pH 7.16 (7.35-7.45) L* 11/14/18 14:33 ABG PO2/FiO2 Ratio 84 RATIO 11/14/18 12:45 ABG HCO3 14 mEq/L (22-26) L 11/14/18 14:33 ABG O2 Saturation 90 % (92-95) L 11/14/18 14:33 ABG Base Excess -14.7 mEq/L (-2.5-2.5) L 11/14/18 14:33 ABG Hemoglobin 14.2 gm/dL (14.5-17.3) L 11/14/18 09:09 ABG Lactic Acid 9.7 mmol/L (0.5-1.6) H 11/14/18 11:15 O2 Concentration % 100 % (0-100) 11/14/18 14:33 POC Sodium 118 mEq/L (137-146) L* 11/14/18 09:09 POC Potassium 2.9 mEq/L (3.3-5.0) L 11/14/18 09:09 Respiration Rate 36 11/14/18 14:33 Actual Respiration Rate 18 11/14/18 12:45 Set Respiration Rate 28 11/14/18 14:33 SIMV YES 11/14/18 11:15 Assist Control YES 11/14/18 14:33 Tidal Volume 600 11/14/18 14:33 End Tidal CO2 18 11/14/18 14:33 PEEP 5 11/14/18 14:33 Pressure Support 7 11/14/18 11:15 POC Sodium 134 mEq/L (135-145) L 11/14/18 08:19 Sodium 126 mEq/L (135-145) L 11/14/18 14:45 POC Potassium 3.4 mEq/L (3.3-5.0) 11/14/18 08:19 Potassium 3.7 mEq/L (3.5-5.2) 11/14/18 08:20 POC Chloride 99 mEq/L (97-110) 11/14/18 08:19 Chloride 100 mEq/L (97-110) 11/14/18 08:20 Carbon Dioxide 12 mEq/l (22-31) L 11/14/18 08:20 Anion Gap 19 mEq/L (6-14) H 11/14/18 08:20 POC BUN 18 mg/dL (7-23) 11/14/18 08:19 BUN 15 mg/dL (7-23) 11/14/18 08:20 Creatinine 1.0 mg/dL (0.7-1.3) 11/14/18 08:20 POC Creatinine 1.1 mg/dL (0.7-1.3) 11/14/18 08:19 Estimated GFR > 60 11/14/18 08:20 Glucose 198 mg/dL (70-100) H 11/14/18 08:20 POC Glucose 198 mg/dL (70-100) H 11/14/18 08:19 Calcium 8.5 mg/dL (8.5-10.4) 11/14/18 08:20 Ionized Calcium 0.99 MMOL/L (1.12-1.30) L 11/14/18 09:09 Magnesium 1.8 mg/dL (1.6-2.3) 11/14/18 08:20 Total Bilirubin 0.9 mg/dL (0.1-1.4) 11/14/18 08:20 AST 76 IU/L (17-59) H 11/14/18 08:20 ALT 65 IU/L (21-72) 11/14/18 08:20 Alkaline Phosphatase 87 IU/L (38-126) 11/14/18 08:20 Troponin I 3.360 ng/mL (0.000-0.034) H 11/14/18 08:20 Total Protein 6.3 g/dL (6.3-8.2) 11/14/18 08:20 Albumin 3.5 g/dL (3.5-5.0) 11/14/18 08:20 Visualized and Interpreted Chest x-ray results: Yes Chest X-Ray results: infiltrate Visualized and Interpreted imaging results: Yes Interpretation: head CT: cerebral edema/brain herniation Visualized and Interpreted EKG results: Yes EKG additional interpertation: sinus tachycardia Assessment & Plan Assessment: Cardiac arrest due to respiratory disorder (Acute) Pneumonia (Acute) 28 yo M w/hx of congenital hydrocephalus presenting from OSH following being found in acute respiratory failure and noted to have VAMP SEAMER shunt failure s/p prolonged cardiac arrest with acute systolic heart failure, brain herniation, acute respiratory failure # cerebral edema/brain herniation: s/p VAMP SEAMER shunt failure, ventriculostomy performed with drain placement by NSG, prognosis very poor with pupils fixed and dilated on arrival to hospital # hydrocephalus with VAMP SEAMER shunt failure: as above # cardiac arrest/acute systolic CHF: s/p prolonged cpr, this was secondary to respiratory event presumably, has balloon pump in place with an estimated EF of 10%, cardiac cath showing clean coronary arteries, discussed with cardiology # acute hypoxic respiratory failure: patient presenting from OSH after being found in respiratory distress with o2 sats in 60s and aspiration pna, now intubated, asp pna as next, suspect neurologic event preceded his respiratory failure and aspiration but apparently on transport patient initially talking etc # aspiration pna: with bilateral infiltrates present on cxr, on clindamycin # shock: likely multifactorial--neurogenic, cardiac and possibly septic shock all contributing--on 2 pressors currently # AGMA: with pH on arrival of 6.8 in the setting of prolonged cardiac arrest and CPR and due to tissue hypoperfusion/shock # metabolic encephalopathy: due to above # IP status, critically ill in ICU, > 45 min of critical care time spent in evaluation of imaging/labs/cardiac cath images and consultation with consulting doctors including cardiology/critical care Patient new to my care. Old records reviewed and summarized as above.
[2018-11-14] MEDS ORDERED: VECURONIUM BROMIDE 50 MG in NS 50 ML IV SCH (17:30)
--- NOTE | 2018-11-14 18:59 | GCON ---
PULMONARY/CRITICAL CARE CONSULTATION DATE OF CONSULTATION: 11/14/2018 REFERRING PHYSICIAN: Maria Victoria English DO REASON FOR REFERRAL: Evaluation and management of cardiac arrest, severe pulmonary edema/pneumonia, and elevated ICPs. HISTORY: Mr. Cintron is a 28-year-old male with a history of hydrocephalus status post shunt as a chi ld. He was seen by Dr. Fairbanks a year and a half ago for shunt revision. He has had recurrent interm ittent headaches both before and after this, but was doing fairly well functionally until several day s ago, when he started to have some worsening headaches radiating down in the shoulders, as well as s ome nausea. He had a total of 3 ER visits to his local emergency department in [place], [place]. It sounds like yesterday he had a syncopal episode as an outpatient and was brought to the hospital the for one of these ER visits, but then was discharged. Early this morning, his family heard a thud and found him in down/unresponsive. He was brought to the hospital where it was felt that he had an aspiration pneumonia based on chest x-ray findings and hypoxemia. He was able to answer questions, b ut was not in his usual baseline neurologic status. Because of a desire to have his shunt evaluated, it was elected to transfer him to another hospital and because he had seen Dr. Cotton, the family req uested he be transferred to [facility]. He was air ambulanced here and shortly befor e arrival, had a cardiac arrest after a coughing episode. He had PEA and CPR was started. CPR was c ontinued from the end of the flight to transport to the emergency department, where epinephrine and b icarbonate were done. An echocardiogram showed cardiac standstill. Narcan was given and there was s ome return of cardiac function with an ejection fraction estimated at 10%. A hypothermia catheter wa s placed, a Narcan drip was started, and the patient was transferred to the catheterization lab. CPR was being performed all the way through en route to the catheterization lab continuously. A balloon pump was placed and a heart catheterization demonstrated no coronary artery disease. Ejection fract ion showed an ejection fraction of 10% to 15%. He was transferred to the intensive care unit followi ng this. Neurosurgery had been consulted and saw him immediately upon arrival in the intensive care unit. Dr. English placed immediately placed an intraventricular drain and found very high intracrani al pressures, in excess of 45 cm H2O. The patient had no neurologic response or brainstem function a t the time of admission, and had fixed dilated pupils. I was asked to consult, assist in ventilator and hemodynamic management. PAST MEDICAL HISTORY: 1. Bicuspid aortic valve. 2. Migraine headaches. MEDICATIONS: At the time of admission, include Flexeril, Neurontin, Motrin, Claritin, Phenergan, Imi trex, Topamax, and venlafaxine. ALLERGIES: Penicillin and sulfamethoxazole. SOCIAL HISTORY: The patient has never smoked. He lives in [place] with his parents. FAMILY HISTORY: Unremarkable. REVIEW OF SYSTEMS: Unobtainable. PHYSICAL EXAMINATION: GENERAL: The patient is intubated. VITAL SIGNS: His initial systolic blood pressure was 90 on an epinephrine drip and an intra-aortic balloon pump. His heart rate is 120. He is afebrile. HEENT: Normocephalic, status post intraventricular drain placement. NECK: No adenopa thy. Trachea is midline. CHEST: Bilateral rales. CARDIAC: Regular tachycardia with intra-aortic balloon pump. ABDOMEN: Soft, nontender. Bowel sounds present. EXTREMITIES: No clubbing, cyanosis , or edema. NEURO: This patient has fixed dilated pupils. He has occasional agonal respirations on the ventilator. No other brainstem function and he has no other spontaneous motor movement. There is no response to noxious stimuli. LABORATORY DATA: White blood count is 30.8, hemoglobin 17.5. He has 10% bands. Chemistry group uvaldo ws a sodium of 131, with a BUN of 15 and a creatinine of 1.0. Glucose is 198. Troponin is 3.4 with an AST of 76. An INR is 1.5. Arterial blood gases initially showed a pH of 6.8 with a bicarbonate of 11, and a CO2 of 68. After v entilator adjustments, his CO2 has come down to 39 with a pH 7.16, and a bicarbonate of 13 and a pO2 of 78% on 90% oxygen with a rate of 18 and a tidal volume of 600. A chest x-ray shows extensive bilateral pulmonary infiltrates, consistent with edema/pneumonia. Imag es reviewed by me. ASSESSMENT: 1. Cardiac arrest. The patient initially had pulseless electrical activity. I suspect that this wa s primarily due to the patient's elevated intracranial pressure. Pneumonia may have also played a ro le, but it appears that his oxygen saturations were fairly stable en route, so that was unlikely to b e the primary cause of his cardiac arrest. He did not have any significant coronary artery disease o n his heart catheterization. He is currently on high-dose epinephrine and intra-aortic balloon pump in order to maintain blood pressure. 2. Acute respiratory failure. He has diffuse pulmonary infiltrates, likely edema with possible aspi ration pneumonia as well. He is oxygenating fairly well, but is requiring mechanical ventilation and high oxygen concentration. 3. Elevated intracranial pressure. This appears to be due to a ventricular shunt malfunction. This has now been bypassed with a ventricular drain. Nonetheless, the patient's intracranial pressures r emain in the 20s to 30s. A subsequent CAT scan after the initial CAT scan shows obliteration of the ventricles, which are now fully drained, as well as edema. Images reviewed by me. 4. Probable pneumonia. The patient apparently has had aspiration related to his altered mental stat us. He was given ceftriaxone, azithromycin, and Flagyl prior to arriving in the intensive care unit. RECOMMENDATIONS: 1. I have had several long discussions with the family, as well as with Dr. Cotton, Dr. English, and Dr. Gerber. His persistently elevated intracranial pressures and abnormal CAT scan, as well as neuro logic exam portend a very poor neurologic prognosis. Efforts to reduce his intracranial pressure may actually reduce his cerebral perfusion pressure, as we try to treat that. I think it is unlikely we will be able to reach goals in terms of lowering his intracranial pressure into the normal or near-n ormal range. Nonetheless, he has been receiving mannitol and has started on sodium chloride. He has had very large urine output and he is at risk for diabetes insipidus, so serum osmoles will be follo wed closely. 2. I have given patient Levaquin and clindamycin for possible aspiration pneumonia. 3. The patient is currently on epinephrine and I have added vasopressin for blood pressure support. His systolic blood pressure is now increased to the 140s. With the assistance of the intra-aortic b alloon pump, we may be able to decrease his epinephrine from the current dose of 0.2. 4. Given the desire to decrease his intracranial pressure, as well as the fact that he is now overbr eathing the ventilator, with a respiratory rate in the 30s, in discussion with Dr. Marti, we decided that it may be best to try to lower his temperature and paralyze him. I am a little bit hesitant to fully institute the HACA protocol as I am concerned the patient may become more unstable, but since h is temperature during the course of the day now going up to over 39 degrees, I think he may benefit f rom some temperature reduction. I will set a goal right now of having a temperature of 37 and will u se vecuronium to keep him from shivering, as well as to reduce his respiratory drive, which could be contributing to his elevated intracranial pressure. He is already on propofol for sedation. Serum s odium and urine osmolality will be checked to follow for the possibility of diabetes insipidus, and d esmopressin could be given if his sodium is rising too quickly and urine output continues to be high. 250 minutes of critical care time, with multiple prolonged discussions with the family, Dr. English, Dr. Marti, as well as multiple interventions throughout the day with nursing to address hypotension, severe combined respiratory and metabolic acidosis, high urine output, high intracranial pressure, an d tachycardia. /[id number]/MODL
--- NOTE | 2018-11-14 19:14 | GCON ---
ADJUNCTIVE CONSULTATION NOTE. DATE OF CONSULTATION: 11/14/2018 The patient was previously seen earlier this afternoon by my partner, Dr. Maria Victoria English, and she has a full consultation dictated in her separate note. This note serves to document my conversation with the family this afternoon. The patient is a 28-year-old man with long-term shunted hydrocephalus, whom I have known for about a year and a half. We saw him here roughly a year and a half ago where he was having some intermittent bradycardia and headaches. Ultimately, we decided to do ICP monitoring and the shunt was externaliz ed at the clavicle. His ICPs when the shunt was open and draining were negative suggesting overdrain age and once the externalized shunt was clamped, his ICPs would go into the 30s and 40s, although he would still be awake and talking. 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 Since that time he has d one extremely well. I had last seen him in November of 2017 and he was doing fine with no recurrence of his headaches and was living his life normally. In September of last 2017, he had one 5 day episode where he was having some headaches, muscle aches and pains and spasms and he had called the o ffice. Given that they live 3 hours away, I suggested local followup as I did not have much concern for the shunt at that time. They did follow up locally and nothing was found to be wrong. The sympt oms resolved essentially 5 days later. He has not had any overt signs of shunt malfunction since the n, although his family says that he is complaining more of headaches recently than he had in the past . Saturday of this past week, which was the day before , he began to have more severe headac hes. He was able to celebrate the with his family and then on Saturday and Saturday, he fel t much worse. He does have some nausea and vomiting and headaches, which were intermittent. He had 3 ER visits in [place] during which time nothing major was found. As of last night, he had a syncopal or seizure like episode where he became unconscious and was transported back to the ER last night. At that most recent time, he was actually not complaining of headache horribly, was resting comfortab ly, but ultimately it was felt that he needed to be transferred. Therefore they arranged transfer he re to [place]. Prior to leaving, he had an aspiration event also and had some hypoxia which seemed t o be stable apparently. In route helicopter transfer from [place] to here, the patient had a cardiac arrest. This arrest apparently was prolonged and he was taken immediately from the helicopter to the laborer chemical processing where no obvious vessel occlusions or abnormalities were seen. They were able to get a hea rt beat back, but had to place an aortic balloon pump. Sometime subsequent to the catheterization la b, we were called and Dr. English saw the patient and he had an exam with a GCS of 3 and pupils were fixed and dilated. She did place an immediate ventriculostomy which showed very high intracranial pr essures in the 40s or 50s. Once ventricular drainage was obtained, the intracranial pressures did im prove, but slowly thereafter started to rise again into the 20s and 30s. At this point in time, a 2n d head CT was done, which showed the ventriculostomy in good placement and no CSF in the ventricles a t all. He had some loss of the burnette-white differentiation, which was suggestive of anoxic brain inju ry at this time. Given these findings, we have been managing him as best as possible with significan t vasopressor and pulmonary support as well as aggressive management of his intracranial pressures. Currently, I went through all these issues with his family and established this timeline. He current ly is overbreathing the vent and his pupils are small, but still unreactive. He really has no other neurologic exam beyond these findings. 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 His intracranial pressures are rising into the 30s now and this is despite some mannitol which was previously given. I discussed with them that I do not see any good surgical optio ns at this point, given that we now have a CSF diversion via the ventriculostomy catheter and there i s no good surgical management of an anoxic brain injury. We will continue to manage him as best as p ossible with osmotic medications as well as hyperventilation and cooling sedation and paralytics if p ossible. However, all these things will also work against his extremely poor cardiac status with eje ction fraction of less than 10%. I told them very clearly that I do not expect a good outcome in thi s case, but we would do the best we can. I do not expect to be successful in our goals of ICP less t hernandez 20 given the limitations that we will be able to give in terms of medications, given his cardiac and pulmonary function, but we will continue to optimize these as best as possible. At some point, w hen things would be more stable, we can consider repeating a scan for more prognostic indication, but again I expect that the outcome will be rather poor. Dr. Gavin was also present for our conversatio n and I did my best to answer all their questions to the best of my ability. I will be on-call this weekend. We will continue to manage him as best as possible throughout that time. I am happy to ans wer any questions or concerns at any time and can be reached via phone. The family was pleased with our conversation. /[id number]/MODL
[2018-11-14] MEDS ORDERED: fentaNYL/NACL 100 ML IV SCH (22:30)
[2018-11-14] MEDS ORDERED: SODIUM BICARBONATE 150 MEQ in D5W 1,000 ML IV SCH (22:30)
[2018-11-14] MEDS: CLINDAMYCIN 600 MG/DEXTROSE 50 ML IV SCH (23:42)
[2018-11-15] MEDS: PETROLAT,WHT/MIN OIL/SOD CHL 3.5 GM OPHT.OINT EACHEYE SCH ×5 (03:25→18:18)
[2018-11-15 05:52] LABS: INR 1.86 (0.83-1.16); PROTIME(PATIENT) 21.5 SEC (12.0-15.0)
[2018-11-15] MEDS: CLINDAMYCIN 600 MG/DEXTROSE 50 ML IV SCH ×2 (06:31→13:40)
[2018-11-15] MEDS ORDERED: PROTOCOL MAGNESIUM 1 DOSE IV PRN (06:36)
[2018-11-15] MEDS ORDERED: PROTOCOL POTASSIUM 1 DOSE MISC PRN (06:36)
[2018-11-15] MEDS ORDERED: PROTOCOL CALCIUM 1 DOSE IV PRN (06:36)
[2018-11-15] MEDS ORDERED: PROTOCOL K PHOSPHATE 1 DOSE IV PRN (06:36)
[2018-11-15 06:40] LABS: PLATELET COUNT 143 10^3/uL (150-400)
--- NOTE | 2018-11-15 06:53 | NEUSURGPN ---
Assessment/Plan: Assessment: 28 yo male with left SUPERVISOR AREA shunt that was last revised in 06/27. Transferred from [place] with PNA and AMS. Pt arrested in flight to here. EVD placed at bedside with ICPs (>45) Plan: -EVD placed at bedside on admission with ICPs over 45-pt is in critical condition -ICPs now over 60 -initially after EVD placed ICPs came down and then returned to over 30 and has progressed up -Critical care on board. Pt with low cardiac EF of 7-10 per reports -maximize medical management for ICPs given very poor cardiac output -prognosis is grim -spoke with family and Dr Marti this am -Dr Marti to see shortly -pt on balloon pump as well-defer to critical care for management -call NS with any changes or issues -family updated to consider donor alliance pending conversation with Dr Marti shortly Subjective: Chart reviewed. Updated from RN Objective: intubated, paralyzed and sedated E: 7mm fixed and dilated to OU M: intubated/sedated and paralyzed, no purposeful movement V: intubated no corneal reflex no gag from ET tube Neuro Check Frequency: as ordered Urinary Catheter in Place: Yes Urinary Catheter Indication: Other (Use Comment) (intubated and sedated/ paralyzed) Catheter Insertion Date: 11/14/18 - Physician Discussed Patient with Dr.: Marti Patient Seen by : [facility] Physical Exam - Vitals, I&O, Labs I and O 11/14/18 11/15/18 11/16/18 05:59 05:59 05:59 Intake Total 3013 Output Total 5163 2 Balance -2150 -2 Weight 80 kg Intake: IV Intake (ml) 100 IV Infused (ml) 2913 Albumin 5% 500 ml @ As 500 Directed IV ONCE ONE Rx#: [id number] EPINEPHrine 8 mg In Ns 791 250 ml @ Per Protocol IV CONT CHALO Rx#:[id number] Mannitol 20% 500 ml @ As 500 Directed IV ONCE ONE Rx#: [id number] Propofol/Emulsion 100 ml 128 @ Per Protocol IV CONT CHALO Rx#:[id number] SODIUM Cl 3% 500 ml @ 30 492 mls/hr IV CONT CHALO Rx#: [id number] Vasopressin 25 unit In Ns 438 250 ml @ 24 mls/hr IV CONT CHALO Rx#:[id number] Vecuronium [place] 50 mg 46 In Ns 50 ml @ Per Protocol IV CONT CHALO Rx#: [id number] fentaNYL/NACL 100 ml @ 18 Per Protocol IV CONT CHALO Rx#:[id number] Output: Urine (ml) 5085 Catheter 5085 CSF Drainage Amount 78 2 2 78 2 Microbiology 11/14/18 17:15 Gram Stain - Final Cerebral Spinal Fluid 11/14/18 11:40 Respiratory Panel (PCR) - Final Nasal, Sinus - Swab No Organism Detected By Pcr Vital Signs Temp Pulse Resp BP Pulse Ox 36 C 115 H 30 H 131/94 H 97 11/15/18 06:00 11/15/18 06:00 11/15/18 06:00 11/15/18 06:00 11/15/18 06:00 Laboratory Results 11/15/18 05:36 ICD10 Worksheet Patient Problems: Problems Problem Status Onset Cardiac arrest due to respiratory disorder Acute Pneumonia Acute Aspiration pneumonitis Acute Headache Acute Migraine Acute Vomiting Acute
[2018-11-15] MEDS: POTASSIUM Cl (KCl) 50 ML IV SCH ×6 (07:30→12:49)
[2018-11-15] MEDS ORDERED: MAGNESIUM SULF 1 GM/DEXTROSE 100 ML IV ONE (08:59)
--- NOTE | 2018-11-15 09:41 | PDINTPN ---
Addictions Counselor Progress Note Assessment/Plan: Assessment: Cardiopulmonary arrest: Likely precipitated by HYDRO PLANT TECHNICIAN shunt malfunction and pneumonia. Had PEA, then EF of 10% after return of spontaneous circulation. Coronary angiogram negative. Intra-aortic balloon pump placed and was maintained good blood pressure with the assistance of the balloon pump and epinephrine/vasopressin. Intracranial hypertension: Likely precipitated by HYDRO PLANT TECHNICIAN shunt malfunction. EVD placed emergently on arrival and pressures were markedly elevated. The decreased into the normal range after placement, but subsequently have risen and remains markedly elevated overnight despite interventions including mannitol , 3% NaCl, and sedation/paralysis. He has had poor prognosis since arrival, and persistently elevated ICP is likely due to progressive edema. He may be brain at this point. Hypokalemia: Severe. Could have been made worse by alkalosis that has developed with bicarb drip and hyperventilation. Currently being replaced and rechecked Pneumonia: Likely aspiration. Diffuse pulmonary infiltrates persist, oxygenation improved. Pulmonary edema likely contributes as well. On Levaquin/ clindamycin. Plan: Hold vecuronium and sedation, following neuro exam Replace potassium and calcium. Stop Bicarbonate drip Follow serum sodium and urine output, start DDAVP if he shows signs of DI Later: The patient's ICP monitor is normal longer functioning. Discussed with Dr. Marti, this is likely due to worsening intracranial hypertension with occlusion of the catheter. Paralytics and sedation was stopped in the morning, and in the afternoon I performed a brain evaluation, including apnea test , and this found no evidence of brainstem or cortical function. Patient cleared at 3:03 p.m. Discussed with family, public employment mediator, Donor [place] and Dr. Marti. 95 minutes CC time addressing lab abnormalities, urine output suggestive of DI , performing brain evaluation, and discussing with multiple providers and family. 11/15/18 17:46 Subjective: Intubated, paralyzed, sedated Objective: Vital Signs Temp Pulse Resp BP Pulse Ox 36.2 C 108 H 30 H 115/77 97 11/15/18 09:00 11/15/18 09:00 11/15/18 09:00 11/15/18 09:00 11/15/18 09:00 Microbiology 11/14/18 17:15 Gram Stain - Final Cerebral Spinal Fluid 11/14/18 11:40 Respiratory Panel (PCR) - Final Nasal, Sinus - Swab No Organism Detected By Pcr Laboratory Results 11/15/18 05:36 11/15/18 05:36 11/14/18 11/15/18 11/16/18 05:59 05:59 05:59 Intake Total 3013 Output Total 5163 722 Balance -2150 -722 PT 21.5 SEC (12.0-15.0) H 11/15/18 05:36 INR 1.86 (0.83-1.16) H 11/15/18 05:36 Chest x-ray: Persistent diffuse infiltrates. ET tube and balloon pump in appropriate position. Images reviewed by me. Physical Exam - Physical Exam General Appearance: unresponsive EENT: normal ENT inspection, ET tube Neck: normal inspection Respiratory: lungs clear, normal breath sounds Cardiac/Chest: tachycardia Abdomen: normal bowel sounds, soft Skin: warm/dry, other (Cool extremities) Extremities: normal inspection Neuro/Psych: other (Paralyzed), No alert ICD10 Worksheet Patient Problems: Problems Problem Status Onset Cardiac arrest due to respiratory disorder Acute Pneumonia Acute Aspiration pneumonitis Acute Headache Acute Migraine Acute Vomiting Acute
[2018-11-15] MEDS ORDERED: CALCIUM GLUCONATE 50 ML IV ONE (09:57)
[2018-11-15] MEDS ORDERED: CALCIUM GLUCONATE 1 GM in D5W 50 ML IV ONE (10:30)
[2018-11-15] MEDS: SODIUM Cl 3% 500 ML IV SCH (11:07)
[2018-11-15] MEDS ORDERED: K PHOS 20 MMOL in D5W 250 ML IV ONE (12:00)
[2018-11-15] MEDS ORDERED: SODIUM BICARBONATE 50 MEQ/50 ML SYR IVP ONE (13:26)
[2018-11-15] MEDS ORDERED: SODIUM BICARBONATE 50 MEQ/50 ML SYR ONE (13:29)
[2018-11-15] MEDS: EPINEPHrine 8 MG in NS 250 ML IV SCH (14:13)
[2018-11-15] MEDS ORDERED: POTASSIUM Cl (KCl) 50 ML IV ONE (17:41)
--- NOTE | 2018-11-15 18:02 | ASMTCMCOM ---
CM Note CM Note Notes: Reviewed chart, spoke with JELANI Murry and Dr. Gavin. Pt admitted via air ambulance from [place] with pneumonia, acute respiratory failure, PEA arrest, and increased intracranial pressure secondary to CATHODE RAY TUBE ASSEMBLER shunt failure. History includes a CATHODE RAY TUBE ASSEMBLER shunt for congenital hydrocephalus and migraines. Pt is single and lives in [place], [place]. Per ICU rounds, brain evaluation to be performed this afternoon. 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 Many family members and friends at bedside. CM offered support and pbx installer assistance several times during shift. Per MD notes, no evidence of brainstem or cortical function found. Family, tank bottom assembler, Donor [place], JELANI and MDs at bedside. CM available for any needed support or concerns. Date Signed: 11/15/2018 06:01 PM Electronically Signed By:Mary Neff RN
[2018-11-15 18:13] VITALS: BP 135/92
== END 2018-11-15 18:32 | disposition expired | DRG 21 ==
LOC: EDUNIT# → F2N 09:59
PROVIDERS: ADMIT Internal Medicine; ATTEND Internal Medicine
PROC: 009600Z Drainage of Cerebral Ventricle with Drainage Device, Open Approach (ICD-10-PCS; principal; 2018-11-14)
PROC: 0BH17EZ Insertion of Endotracheal Airway into Trachea, Via Natural or Artificial Opening (ICD-10-PCS; 2018-11-14)
PROC: 5A1945Z Respiratory Ventilation, 24-96 Consecutive Hours (ICD-10-PCS; 2018-11-14)
PROC: 5A12012 Performance of Cardiac Output, Single, Manual (ICD-10-PCS; 2018-11-14)
PROC: B2151ZZ Fluoroscopy of Left Heart using Low Osmolar Contrast (ICD-10-PCS; 2018-11-14)
PROC: 4A023N7 Measurement of Cardiac Sampling and Pressure, Left Heart, Percutaneous Approach (ICD-10-PCS; 2018-11-14)
PROC: 02H Heart and Great Vessels, Insertion (ICD-10-PCS; 2018-11-14)
PROC: 5A02210 Assistance with Cardiac Output using Balloon Pump, Continuous (ICD-10-PCS; 2018-11-14)
PROC: B2111ZZ Fluoroscopy of Multiple Coronary Arteries using Low Osmolar Contrast (ICD-10-PCS; 2018-11-14)
PROC: 6A4Z0ZZ Hypothermia, Single (ICD-10-PCS; 2018-11-14)
DX: T85.09XA Other mechanical complication of ventricular intracranial (communicating) shunt, initial encounter (principal); R09.2 Respiratory arrest; I46.8 Cardiac arrest due to other underlying condition; I50.21 Acute systolic (congestive) heart failure; R57.0 Cardiogenic shock; J69.0 Pneumonitis due to inhalation of food and vomit; J96.01 Acute respiratory failure with hypoxia; G93.6 Cerebral edema; G93.5 Compression of brain; G93.1 Anoxic brain damage, not elsewhere classified; E87.2 Acidosis; E87.6 Hypokalemia; R40.2432 Glasgow coma scale score 3-8, at arrival to emergency department; R57.8 Other shock; Q03.9 Congenital hydrocephalus, unspecified; G43.909 Migraine, unspecified, not intractable, without status migrainosus; Q23.1 Congenital insufficiency of aortic valve
CPT/HCPCS: 82435-PO; 82565-PO; 82947-PO; 84132-PO; 84295-PO; 84520-PO; 85014-ER; J0171; J0330; J0583; J0610; J1644; J1956; J2250; J2310; J2704; J3010; J3475; J3480; P9041; Q9967

== ENCOUNTER 2018-11-15 18:32 | Inpatient (IN) | payer OTHER ==
[2018-11-15] MEDS ORDERED: EPINEPHrine 1 MG in NS 250 ML IV SCH (20:00)
[2018-11-15] MEDS ORDERED: IPRATROPIUM/ALBUTEROL 3 ML DEYVIAL ONE (21:00)
[2018-11-15] MEDS: IPRATROPIUM/ALBUTEROL 3 ML DEYVIAL IH SCH (21:22)
[2018-11-15] MEDS ORDERED: INSULIN REGULAR HUMAN 100 UNIT/ML UNIT IVP ONE (21:30)
[2018-11-15] MEDS ORDERED: D50W 25 GM/50 ML SYR IVP ONE (21:30)
[2018-11-15] MEDS ORDERED: NS 1,000 ML IV SCH (21:30)
[2018-11-15] MEDS ORDERED: LEVOTHYROXINE 20 MCG in NS (SYRINGE) 50 ML IVP ONE (21:30)
[2018-11-15 21:39] LABS: PLATELET COUNT 110 10^3/uL (150-400)
[2018-11-15 21:45] LABS: INR 1.49 (0.83-1.16); PROTIME(PATIENT) 18.2 SEC (12.0-15.0)
[2018-11-15] MEDS: VASOPRESSIN 25 UNIT in NS 250 ML IV SCH (21:49)
[2018-11-15] MEDS ORDERED: methylPREDNISolone SOD SUCC 2 GM in D5W 100 ML IV ONE (22:00)
[2018-11-15 22:05] LABS: CREATINE KINASE 268 IU/L (0-224)
[2018-11-15] MEDS: CLINDAMYCIN 600 MG/DEXTROSE 50 ML IV SCH (22:17)
[2018-11-15] MEDS: LEVOTHYROXINE 200 MCG in NS 500 ML IV SCH (22:45)
[2018-11-15] MEDS: PETROLAT,WHT/MIN OIL/SOD CHL 3.5 GM OPHT.OINT EACHEYE SCH (22:49)
[2018-11-16] MEDS: IPRATROPIUM/ALBUTEROL 3 ML DEYVIAL IH SCH ×6 (02:10→21:01)
[2018-11-16 03:37] LABS: PLATELET COUNT 72 10^3/uL (150-400)
[2018-11-16] MEDS: CLINDAMYCIN 600 MG/DEXTROSE 50 ML IV SCH ×3 (06:50→23:29)
[2018-11-16] MEDS: PETROLAT,WHT/MIN OIL/SOD CHL 3.5 GM OPHT.OINT EACHEYE SCH ×3 (06:51→23:30)
[2018-11-16] MEDS: [UNRECOGNIZED DRUG - OTHER] IV SCH ×3 (07:44→23:29)
[2018-11-16] MEDS: METHYLPRED IV SCH ×3 (07:44→23:29)
--- NOTE | 2018-11-16 09:09 | CPEKG ---
Test Reason : OPEN Blood Pressure : / mmHG Vent. Rate : 116 BPM Atrial Rate : 116 BPM P-R Int : 141 ms QRS Dur : 089 ms QT Int : 356 ms P-R-T Axes : 058 -33 144 degrees QTc Int : 495 ms Sinus tachycardia Left axis deviation Abnrm T, consider ischemia, anterolateral lds Prolonged QT interval Confirmed by Deng Gerber ([id number]) on 11/16/2018 9:08:41 AM Referred By: Confirmed By:Deng Gerber
[2018-11-16 09:43] LABS: PLATELET COUNT 93 10^3/uL (150-400)
[2018-11-16 09:51] LABS: INR 1.42 (0.83-1.16); PROTIME(PATIENT) 17.5 SEC (12.0-15.0)
[2018-11-16 10:03] LABS: CREATINE KINASE 329 IU/L (0-224)
[2018-11-16] MEDS ORDERED: LIDOCAINE 2% JELLY 20 ML (UROJECT) ONE (11:01)
[2018-11-16] MEDS ORDERED: LIDOCAINE 2% JELLY 20 ML (UROJECT) TP ONE (11:15)
--- NOTE | 2018-11-16 11:22 | ECHO ---
[email or web address] [address] [address] Main: [phone] Fax: Transthoracic Echocardiogram Name: JOSE FRANCISCO LAWLER MR#: [id number] Study Date: 11/16/2018 Study Time: 09:11 AM Date of : 1990 Age: 28 year(s) Height: 178 cm (70.08 in.) Weight: 80 kg (176.37 lb.) BSA: 1.98 m2 Gender: Male Examination: Echo Indication: Eval EF with balloon pump on Image Quality: Contrast: Requested by: Toney Gavin BP: 123 mmHg/75 mmHg Heart Rate: Rhythm: Indication: Eval EF with balloon pump on Procedure Staff Vp Integration: Eliz Cohen RDCS Reading Physician: Kyler Lane MD Requesting Provider: Conclusions: Normal size left ventricle. Severely reduced systolic LV function. The ejection fraction is estimated to be 10 %. All LV segments are akinetic with the exception of a small area of the basilar segments which have normal motion.. Mild aortic valve regurgitation is present. Aortic valve opens well.. Trivial to mild tricuspid valve regurgitation. No pericardial effusion. Measurements: Chambers Valvular Assessment AV/MV Valvular Assessment TV/PV Normal Normal Normal Name Value Range Name Value Range Name Value Range Ao Linda (MM): 3.7 cm (2.2 cm-3.7 AV Vmax: 0.85 m/s (1 m/s-1.7 cm) m/s) LVDd (2D): 5.5 cm (4.2 cm-5.9 AV meanP mmHg ( - ) cm) MV E Vmax: 0.35 m/s ( - ) LVEF (BP): 15 % (>=55 %) MV A Vmax: 0.42 m/s ( - ) EF Range: 10 % MV E/A: 0.83 ( - ) Continued Measurements: Valvular Assessment AV/MV Name Value MV E' Septal: 0.05 m/s MV E/E' Septal: 7.00 MV E/E' Lateral: 10.10 Patient: JOSE FRANCISCO LAWLER Study Date: 11/16/2018 Page 1 of 2 09:11 AM Findings: Left Ventricle: Normal size left ventricle. Severely reduced systolic LV function. The ejection fraction is estimated to be 10 %. All LV segments are akinetic with the exception of a small area of the basilar segments which have normal motion.. Right Ventricle: Normal size right ventricle. Left Atrium: The left atrium is normal in size. Right Atrium: The right atrium is normal in size. Mitral Valve: The mitral valve is normal in appearance. Aortic Valve: Mild aortic valve regurgitation is present. Aortic valve opens well.. Tricuspid Valve: The tricuspid valve appears normal. Trivial to mild tricuspid valve regurgitation. Pulmonic Valve: The pulmonic valve is normal in appearance. Pericardium: No pericardial effusion. (No Signature Object) Patient: JOSE FRANCISCO LAWLER Study Date: 11/16/2018 Page 2 of 2 09:11 AM [id number]
[2018-11-16] MEDS: VASOPRESSIN 25 UNIT in NS 250 ML IV SCH (11:28)
[2018-11-16 15:26] LABS: PLATELET COUNT 91 10^3/uL (150-400)
[2018-11-16] MEDS: LEVOTHYROXINE 200 MCG in NS 500 ML IV SCH (17:49)
[2018-11-16 21:33] LABS: PLATELET COUNT 78 10^3/uL (150-400)
[2018-11-16 21:50] LABS: INR 1.27 (0.83-1.16); PROTIME(PATIENT) 16.1 SEC (12.0-15.0)
[2018-11-16 22:46] LABS: CREATINE KINASE 230 IU/L (0-224)
[2018-11-17 00:01] VITALS: BP 116/70
--- NOTE | 2018-11-17 02:18 | PDANEPAE ---
ANE History of Present Illness organ retrieval ANE Past Medical History - Cardiovascular History Hx Arrhythmias: Yes Cardiovascular History Comment: found down, PEA, cardiac arrest, now balloon pump - Pulmonary History Hx Recent Upper Respiratory Infection: Yes Hx Oxygen in Use at Home: No Hx Sleep Apnea: No - Endocrine History Hx Diabetes: No - Neurological & Psychiatric Hx Hx Neurological and Psychiatric Disorders: Yes Neurological / Psychiatric History Comment: hydrocephalus with malfunctioning CHOCOLATIER shunt, severely elevated ICP, brain - Chronic Pain History Chronic Pain: No ANE Review of Systems Review of systems is: negative Review of Systems: - Exercise capacity Exercise capacity: limited by disability ANE Patient History - Allergies Allergies/Adverse Reactions: Penicillins Allergy (Verified 06/10/17 20:21) Hives sulfamethoxazole Allergy (Verified 06/10/17 20:21) Hives - Home Medications Home medications: home medication list seen and reviewed Home Medications: Cyclobenzaprine [Flexeril 10 MG (*)] 10 mg PO TID PRN 06/10/17 [Last Taken 06/07] Gabapentin [Neurontin 300 MG (*)] 600 mg PO BID 06/10/17 [Last Taken 06/10/17 08 :00] Ibuprofen [Motrin (*)] 800 mg PO TID PRN 06/10/17 [Last Taken 06/07/17] Loratadine [Claritin 10 mg] 10 mg PO DAILY PRN 06/10/17 [Last Taken 06/09/17] Promethazine HCl [Phenergan 25mg (*)] 12.5 mg PO Q6 PRN 06/10/17 [Last Taken ] Sumatriptan Succinate [Imitrex] 100 mg PO ONCE PRN MDD 200MG 06/10/17 [Last Taken 06/07/17] Topiramate [Topamax 100MG (*)] 100 mg PO BID 06/10/17 [Last Taken 06/10/17] Venlafaxine HCl [Venlafaxine HCl ER] 75 mg PO HS 06/10/17 [Last Taken 06/09/17] - NPO status NPO Status: no food or drink >8 hours - Anes Hx Anes Hx: no prior problems - Smoking Hx Smoking Status: Never smoked - Family Anes Hx Family Anes Hx: none ANE Labs/Vital Signs - Labs Result Diagrams: 11/16/18 21:15 11/16/18 21:15 - Vital Signs Vital Signs: reviewed preoperatively; see RN documention for details Blood Pressure: 116/70 Heart Rate: 110 Respiratory Rate: 22 O2 Sat (%): 100 Height: 177.8 cm Weight: 80 kg ANE Physical Exam - Airway Mallampati Score: Unable to assesss - Pulmonary Pulmonary: no respiratory distress - Cardiovascular Cardiovascular: regular rate and rhythym - ASA Status ASA Status: V (ASA , not V) ANE Anesthesia Plan Anesthesia Plan: general endotracheal anesthesia Urgent/Emergent Case: Anes eval completed preop but documented later for safe timely pt care
[2018-11-17] MEDS: IPRATROPIUM/ALBUTEROL 3 ML DEYVIAL IH SCH ×2 (02:32→06:11)
[2018-11-17] MEDS ORDERED: ROCURONIUM 100 MG/10 ML VIAL ONE ×2 (03:18)
--- NOTE | 2018-11-17 04:19 | POSTANESTH ---
Post Anesthetic Evaluation Cardiovascular Status: Other, See Comment (, organ donor)
== END 2018-11-17 03:00 | disposition expired | DRG 941 ==
LOC: F2N 18:32
PROVIDERS: ADMIT Internal Medicine Critical Care Medicine; ATTEND Internal Medicine Critical Care Medicine
DX: Z52.89 Donor of other specified organs or tissues (principal)
CPT/HCPCS: J1815; J2930